=== PATIENT | female | born 1940 | race Caucasian/White ===

== ENCOUNTER 2017-08-26 15:50 | Emergency (ER) | payer MEDICARE, BC ==
--- NOTE | 2017-08-26 16:45 | CT ---
CT CERVICAL SPINE NONCONTRAST: Date: 08/26/17 HISTORY: Fall. Neck injury. FINDINGS: Vertebral body heights and alignment are maintained. There are prominent discogenic end plate changes throughout the end plates and disc space narrowing throughout the cervical spine. Osteophytosis invo lves the vertebral bodies and facets. No acute fracture or dislocation apparent. Cervicothoracic junc tion is intact. There is calcification in the arterial structures. IMPRESSION: 1. Cervical spondylosis. No acute osseous abnormalities are demonstrated. 2. Atherosclerosis. POS: [facility]
--- NOTE | 2017-08-26 16:57 | CT ---
CT HEAD NONCONTRAST 08/26/17 HISTORY: Fall. Head injury. COMPARISON: 02/07/12. FINDINGS: There is no evidence of acute intracranial hemorrhage or infarct. Diffuse cortical atrophy and chroni c ischemic small vessel disease are stable. There is no mass effect or shift of midline structures. T he tiny hyperdense focus at the mckinley-white junction of the medial aspect of the right frontal lobe is stable. Visualized paranasal sinuses remain well aerated. Scalp laceration over the right frontal ca lvarium is now apparent. IMPRESSION: 1. Right frontal scalp laceration. 2. Chronic type findings are stable. No acute intracranial abnormalities are demonstrated. POS: [facility]
[2017-08-26] MEDS ORDERED: Adacel (T-DAP) 0.5 ML VIAL ONE (16:58)
== END 2017-08-26 17:15 | disposition home or self-care (01) ==
LOC: SCSER 15:50
DX: S01.81XA Laceration without foreign body of other part of head, initial encounter (principal); S01.21XA Laceration without foreign body of nose, initial encounter; S16.1XXA Strain of muscle, fascia and tendon at neck level, initial encounter; M17.9 Osteoarthritis of knee, unspecified; E11.9 Type 2 diabetes mellitus without complications; E78.5 Hyperlipidemia, unspecified; Z79.82 Long term (current) use of aspirin; Z79.899 Other long term (current) drug therapy; W01.0XXA Fall on same level from slipping, tripping and stumbling without subsequent striking against object, initial encounter
CPT/HCPCS: 12011; 70450; 72125; 90715

== ENCOUNTER 2018-06-30 12:30 | Emergency (ER) | payer BC, MEDICARE ==
[2018-06-30] MEDS ORDERED: Bacitracin Zinc 1 Packet ONE (12:53)
[2018-06-30] MEDS ORDERED: traMADol HCl 50 MG TAB ONE (12:54)
--- NOTE | 2018-06-30 13:31 | CT ---
CERVICAL SPINE: Date: 06-29-18 Provided Clinical History: Injury, dizziness, pain. FINDINGS: Comparison is made with the study dated 08-26-17. There is no evidence for fracture or traumatic subluxation. Advanced multilevel cervical degenerative changes are again seen. No prevertebral soft tissue swelling is apparent. The visualized lung apices appear clear. Vascular calcifications are seen. IMPRESSION: No evidence for fracture or traumatic subluxation. POS: [facility]
--- NOTE | 2018-06-30 13:33 | CT ---
CT FACIAL BONES: Date: 06-29-18 Provided Clinical History: Facial pain status post injury. FINDINGS: There is no evidence for fracture. The globes and other orbital contents appear normal. The paranasal sinuses appear clear. IMPRESSION: No evidence for fracture. POS: [facility]
--- NOTE | 2018-06-30 13:52 | CT ---
CT BRAIN WITHOUT CONTRAST: HISTORY: Fall. Head injury. Headache. COMPARISON: 08/26/2017 FINDINGS: Changes of cortical atrophy and chronic small vessel ischemic disease are again seen. The small, hyp odense focus at the mckinley white matter junction at the medial aspect of the right frontal lobe is stab le. No evidence of acute infarct, hemorrhage, midline shift, or abnormal extraaxial fluid collection s is seen. The bony calvarium is intact. The visualized paranasal sinuses and mastoid air cells are well aerated. IMPRESSION: No CT evidence of acute intracranial process. POS: [facility]
--- NOTE | 2018-06-30 14:07 | RAD ---
LEFT KNEE FOUR VIEWS: History: 78-year-old female with history of injury status post fall. Comparison: 03-26-09 FINDINGS: Severe tricompartment arthrosis and joint space narrowing and hypertrophic osteophytosis. No acute fr acture or dislocation. IMPRESSION: Severe tricompartment arthrosis and degenerative changes. Bony demineralization. No acute fracture. POS: [facility]
--- NOTE | 2018-06-30 14:42 | RAD ---
RADIOGRAPH LEFT SHOULDER THERE VIEWS: Date: 06-30-18 Time: 1:51 p.m. History: 78-year-old female with acute traumatic left shoulder pain after fall. Comparison: 11-16-13 FINDINGS: Again noted is the metallic prosthesis replacing the humeral head with stem that reaches the proximal /mid humeral diaphysis. Short linear metallic markers at the glenoid. No acute fracture, loosening of hardware, or dislocation. IMPRESSION: 1. No acute fracture or dislocation. 2. Status post total left glenohumeral joint replacement arthroplasty. POS: [facility]
--- NOTE | 2018-06-30 14:44 | RAD ---
FOUR VIEWS RIGHT KNEE: COMPARISON: None. HISTORY: Right knee pain after injury. FINDINGS: Four views of the right knee show no evidence of acute fracture or dislocation. There is severe tric ompartmental joint space narrowing and osteophyte formation consistent with osteoarthritis. No knee effusion is seen. IMPRESSION: Severe right knee osteoarthritis. POS: [facility]
== END 2018-06-30 14:33 | disposition home or self-care (01) ==
LOC: ERS 12:30
DX: S01.81XA Laceration without foreign body of other part of head, initial encounter (principal); S40.012A Contusion of left shoulder, initial encounter; E11.9 Type 2 diabetes mellitus without complications; E78.5 Hyperlipidemia, unspecified; I10 Essential (primary) hypertension; F32.9 Major depressive disorder, single episode, unspecified; Z79.84 Long term (current) use of oral hypoglycemic drugs; Z79.899 Other long term (current) drug therapy; W01.0XXA Fall on same level from slipping, tripping and stumbling without subsequent striking against object, initial encounter
CPT/HCPCS: 70450; 70486; 72125

== ENCOUNTER 2018-07-02 12:05 | Emergency (ER) | payer MEDICARE, BC ==
[2018-07-02] MEDS ORDERED: Bacitracin Zinc 1 Packet ONE ×2 (13:27→13:31)
== END 2018-07-02 13:35 | disposition home or self-care (01) ==
LOC: ERS 12:05
DX: S51.811A Laceration without foreign body of right forearm, initial encounter (principal); M19.90 Unspecified osteoarthritis, unspecified site; E11.9 Type 2 diabetes mellitus without complications; E78.5 Hyperlipidemia, unspecified; I10 Essential (primary) hypertension; F32.9 Major depressive disorder, single episode, unspecified; W19.XXXA Unspecified fall, initial encounter
CPT/HCPCS: 99282

== ENCOUNTER 2019-03-01 15:40 | Inpatient (IN) | payer MEDICARE, BC ==
[2019-03-01] MEDS ORDERED: Acetaminophen 500 MG TAB PO SCH (16:45)
[2019-03-01] MEDS ORDERED: diphenhydrAMINE 25 MG CAP PO SCH (16:45)
[2019-03-01 17:18] VITALS: BMI 22.9
[2019-03-01] MEDS ORDERED: Dextrose 5% in Water 1,000 ML IV PRN (19:17)
[2019-03-01] MEDS ORDERED: Ondansetron ODT 4 MG TAB PO PRN (19:17)
[2019-03-01] MEDS ORDERED: Acetaminophen 325 MG TAB PO PRN (19:17)
[2019-03-01] MEDS ORDERED: Dextrose 50% Abboject 50 ML SYRINGE SLOW IVP PRN (19:17)
[2019-03-01] MEDS ORDERED: BECLOMETHASONE DIPROPIONATE NS PRN (19:20)
[2019-03-01] MEDS ORDERED: Temazepam 15 MG CAP PO PRN (19:22)
[2019-03-01] MEDS ORDERED: Fluticasone Propionate Nasal Spray 16 gm Bottle NASAL PRN (19:58)
--- NOTE | 2019-03-01 20:01 | HP ---
PRIMARY CARE PROVIDER: Dr. Blanco. CHIEF COMPLAINT: Weakness. HISTORY OF PRESENT ILLNESS: This is a 78-year-old female with history of diabetes, GERD, hypothyroidism, dyslipidemia, neuropathy, who presented to the [facility] today for IV iron infusion secondary to generalized weakness from anemia. The patient reports onset of feeling weak approximately one month ago. She states that at this point she can barely walk and has significant dyspnea with exertion with walking just across her home. She denies any prior history of transfusion or significant anemia. She reports her last colonoscopy was about two years ago and normal. She is on a daily low-dose aspirin as well as an NSAID for chronic arthritis pain. She denies any abdominal pain, nausea, or vomiting. She does report chronic constipation, for which she had very dark stools. The patient denies any sores, any bleeding with her gums, any blood in her urine , and also denies any blood with coughing. She presented to the Cancer Clinic today for IV iron infusion and found to have a hemoglobin of 5.1. She reports a week ago it was 7.0. There have been no precipitating factors or relieving factors. From the Cancer Clinic due to that significant severe anemia, she was directed to the hospital for direct admission. Treatments: IV iron x 1 dose today PAST MEDICAL HISTORY: 1. Diabetes mellitus. 2. Osteoarthritis. 3. Dyslipidemia. 4. History of ulcer approximately in 2004. 5. Hypothyroidism. 6. GERD. 7. Seasonal allergies. 8. Peripheral neuropathy. 9. Depression. PAST SURGICAL HISTORY: 1. Gastric bypass in 2004. 2. Left shoulder replacement. 3. Hysterectomy. 4. Cholecystectomy. FAMILY HISTORY: Significant for mom who had breast cancer. SOCIAL HISTORY: The patient denies any tobacco, reports one drink per month of alcohol. The patient is a full code. Her surrogate decision makers are her two sons, Morteza and Toño. MEDICATIONS: Reconciled with a list by the patient. 1. Aspirin 81 mg daily. 2. Januvia 100 mg daily. 3. Zyrtec 10 mg daily. 4. MegaRed supplement. 5. Wellbutrin 150 mg daily. 6. Nexium 40 mg daily. 7. Zetia 10 mg daily. 8. Zoloft 100 mg tablets 1-1/2 tablets daily. 9. Oxaprozin 600 mg daily. 10. Lyrica 75 mg b.i.d. 11. Unisom 50 mg at bedtime. 12. Osteo Bi-Flex two tablets daily. 13. Calcium with vitamin D one tablet daily. 14. Beclomethasone nose spray one spray each nostril daily. 15. Multivitamin daily. 16. Synthroid 25 mcg daily. 17. Lipitor 80 mg at bedtime. 18. Dulcolax two times per week. 19. Metamucil three tablets b.i.d. 20. Metformin 1000 mg 1-1/2 tablets in the morning and one tablet in the evening. REVIEW OF SYSTEMS: Notable for shortness of breath, constipation for which the patient relies on Dulcolax twice a week to have bowel movements that she reports are very dark, as well as urinary hesitation over the past few weeks. Denies nausea , vomiting, diarrhea, cold intolerance, chest pain, hematuria, fevers, or chills. All remaining review of systems are reviewed and negative. ALLERGIES: NONE. PHYSICAL EXAMINATION: VITAL SIGNS: Blood pressure 109/63, temperature 98.3, pulse 84, respirations 14 , sats 94% on room air. GENERAL: Awake, alert, responsive, in no apparent distress. Able to speak in full sentences, does appear out of breath after ambulating from the bathroom. HEENT: Her skin is pale. Pupils are equal and round. Oral mucosa is pink and moist. NECK: Supple and nontender. LYMPHATICS: No palpable cervical or supraclavicular lymphadenopathy. LUNGS: Clear to auscultation bilaterally. No audible wheezing, rhonchi, or rales. HEART: Normal S1 and S2 with a 2/6 systolic ejection murmur throughout. ABDOMEN: Soft. Present bowel sounds. Nontender. Nondistended. EXTREMITIES: A 1+ pitting edema bilateral at the ankles. No clubbing or cyanosis. VASCULAR: A 2+ dorsalis pedis pulses. NEUROLOGIC: No focal deficits. PSYCHIATRIC: Appears euthymic. SKIN: Pale with few areas of ecchymosis on arms and legs. LABORATORY DATA: By report, hemoglobin of 5.1 today and a week ago it was 7.0. IMPRESSION: 1. Severe symptomatic anemia consistent with iron deficiency and concern for acute blood loss given that dramatic acid changer a short period of time. 2. History of ulcer, in a patient who is on low-dose aspirin and nonsteroidal anti-inflammatory drug daily. 3. Diabetes mellitus, unknown control. 4. Osteoarthritis. 5. Dyslipidemia. 6. Hypothyroidism. 7. Peripheral neuropathy. 8. Seasonal allergies. 9. Gastroesophageal reflux disease. PLAN: 1. Admission to the hospital. 2. Transfuse 2 units packed red blood cells tonight. Recheck in the morning along with checking a CMP and TSH. 3. GI consultation to evaluate for acute blood loss anemia. 4. Continuing selective home medicines, holding the aspirin and the oxaprozin. We will continue bowel medications. 5. Bedside commode for patient comfort as well as sleep medicine per her request. 6. We will add p.r.n. pain medication for the chronic osteoarthritis. 7. We will continue Januvia, hold metformin for now and use insulin sliding scale as needed with a diabetic heart healthy diet. 8. Anticipated length of stay is three nights. 9. DVT prophylaxis with pneumatic compression devices. 10. GI prophylaxis - IV BID PPI for now 11. Code status is full. Surrogate decision makers are the patient's sons. 12. The patient is at high risk given age, comorbidities, and current presentation. 13. Reviewed the plan of care with the patient. No questions or further needs. Job ID: [id number] MTDD
[2019-03-01] MEDS: Pregabalin 75 MG CAP PO SCH (20:12)
[2019-03-01] MEDS: Atorvastatin Calcium 40 MG TAB PO SCH (20:12)
[2019-03-01] MEDS: Docusate 100 MG CAP PO SCH (20:12)
[2019-03-01] MEDS: Pantoprazole 40 MG VIAL IVP SCH (20:13)
[2019-03-01] MEDS: Polyethylene Glycol 3350 17 GM Packet PO SCH (20:13)
[2019-03-01] MEDS: HumaLOG 300 UNITS/3 ML VIAL SC PRN (20:16)
--- NOTE | 2019-03-02 03:05 | CON ---
DATE OF CONSULTATION: 03/01/2019 CHIEF COMPLAINT: Weakness and anemia. HISTORY OF PRESENT ILLNESS: Ms. Joseph is a 78-year-old woman who states that she has felt weak over the last month. She saw her primary care physician, Dr. Guevara and was noted to have a decrease in her hemoglobin this month compared to prior blood draws. She was sent to the [facility] for IV iron infusion due to history of iron deficiency anemia related to her prior gastric bypass surgery. However, she was found to have even further decline in her hemoglobin, reportedly with a hemoglobin around 5 today. She was then admitted from the Cancer Clinic for further evaluation of her anemia. She had an acute GI bleed back in 2015 when she presented with hematochezia. She underwent upper endoscopy in March 2016, which showed no bleeding source. She had a small gastric pouch and the jejunal loop was explored without signs of bleeding. She had had a colonoscopy, which was completely normal in January 2016 and also a normal colonoscopy in 2005. She has been followed by Dr. Kraft previously for her last colonoscopy and EGD. She has had no overt GI bleeding since then. She does have baseline constipation and takes Dulcolax a couple of times per week to achieve bowel movement. PAST MEDICAL HISTORY: 1. GI bleed back in 2005 without a bleeding source identified. 2. History of iron deficiency anemia related to gastric bypass surgery. 3. Hypothyroidism, depression, peripheral neuropathy, gastroesophageal reflux disease, hyperlipidemia, osteoarthritis, diabetes mellitus. PAST SURGICAL HISTORY: Gastric bypass surgery in 2004, hysterectomy, cholecystectomy, shoulder surgery. FAMILY HISTORY: Negative for GI malignancies. SOCIAL HISTORY: Rare alcohol. No tobacco or drugs. ALLERGIES: NO KNOWN DRUG ALLERGIES. MEDICATIONS: Prior to admission; 1. Aspirin is 81 mg daily. 2. Januvia. 3. Zyrtec. 4. Wellbutrin. 5. Nexium 40 mg daily. 6. MegaRed supplements. 7. Zetia. 8. Zoloft. 9. Oxaprozin. 10. Lyrica. 11. Unisom. 12. Osteo Bi-Flex. 13. Calcium with vitamin D. 14. Beclomethasone nasal spray. 15. Synthroid. 16. Multiple vitamin. 17. Lipitor. 18. Metamucil. 19. Metformin. REVIEW OF SYSTEMS: Negative x10 systems reviewed except as stated in the history of present illness. PHYSICAL EXAMINATION: VITAL SIGNS: Temperature 98.2, pulse 111, blood pressure 104/64. GENERAL: She is pale, in no acute distress. Alert and oriented x3. HEENT: Eyes have no scleral icterus. Oropharynx is clear without lesions. No cervical or supraclavicular lymphadenopathy. LUNGS: Clear to auscultation bilaterally. HEART: Tachycardic. S1, S2. ABDOMEN: Soft, nontender, and nondistended. Bowel sounds are present. EXTREMITIES: No lower extremity edema. LABORATORY DATA: Hemoglobin is 5.1, white blood cell count 7.7, platelets 413, MCV 93.3. IMPRESSION: Severe anemia, normocytic without signs of overt bleeding. She did have significant overt bleed back in 2016; however, upper and lower endoscopies were negative for bleeding source at that time. She has baseline anemia, however, an acute drop over the last month. She has gastric bypass anatomy and certainly could have malabsorption of iron. However, given the abrupt drop, then bleeding source needs to be considered as well. We will check iron studies and B12 and folate. RECOMMENDATIONS: 1. Plan for upper endoscopy tomorrow. 2. Check iron studies and B12 and folate and reticulocyte count. 3. Transfusion. 4. If the upper endoscopy is negative, then consider colonoscopy as a next step. 5. She will likely continue to require IV iron given the gastric bypass and it is unlikely that oral replacement will be adequate for her. 6. If upper and lower endoscopies are negative then outpatient capsule could be considered as a next step. 7. The patient did receive IV iron today and is already receiving blood transfusion. Iron studies are unlikely to be accurate at this point. We will request records from Dr. Guevara to see if she has already had recent blood work done regarding these labs. We will hold off ordering these for now. We will follow through with upper endoscopy for tomorrow. Job ID: [id number]
[2019-03-02] MEDS: Levothyroxine Sodium 25 MCG TAB PO SCH (05:25)
[2019-03-02 05:38] LABS: #Eosinphils 0.2 thou/uL (0.0-0.7); #Lymphocytes 1.5 thou/uL (1.20-3.40); #Monocytes 0.6 thou/uL (0.11-0.59); #Neutrophils 3.7 thou/uL (1.40-6.50); %Basophils 0.4 % (0.0-1.0); %Eosinophils 2.8 % (0.0-10.0); %Lymphocytes 24.5 % (21.0-51.0); %Monocytes 10.4 % (0.0-10.0); %Neutrophils 61.8 % (42.0-75.0); Hemoglobin 7.4 g/dL (12.0-16.0); Mean Corpuscular HGB CONC 30.7 g/dL (32.0-36.0); Mean Corpuscular Volume 94.4 fL (78.0-98.0); Mean Platelet Volume 6.9 fL (7.4-10.4); Platelet Count 350 thou/uL (130-400); Red Blood Cell (RBC) Count 2.54 mill/uL (4.20-5.40); White Blood Cell (WBC) Count 5.9 thou/uL (4.8-10.8)
[2019-03-02 06:03] LABS: ALT (SGPT) 12 U/L (8-55); AST (SGOT) 18 U/L (5-34); Albumin 3.4 g/dL (3.4-4.8); Alkaline Phosphatase 56 U/L (40-150); Anion Gap 8 mmol/L (10-20); BUN (Urea Nitrogen) 11 mg/dL (9.8-20.1); Bilirubin, Direct 0.2 mg/dL (0.1-0.3); Bilirubin, Total 0.3 mg/dL (0.2-1.2); Calc. Creatinine Clearance 82 mL/min (70-130); Calcium 8.6 mg/dL (7.8-10.44); Carbon Dioxide 32 mmol/L (23-31); Chloride 104 mmol/L (98-107); Estimated GFR-MDRD Greater than 90; Glucose 115 mg/dL (83-110); Protein, Total 5.2 g/dL (6.0-8.3); Sodium 140 mmol/L (136-145)
[2019-03-02] MEDS: Alogliptin 25 MG TAB PO SCH (08:50)
[2019-03-02] MEDS: Bupropion 150 MG SR TAB PO SCH (08:51)
[2019-03-02] MEDS: Multivit, Therapeutic 1 TAB PO SCH (08:51)
[2019-03-02] MEDS: Ezetimibe 10 MG TAB PO SCH (08:52)
[2019-03-02] MEDS: Loratadine 10 MG TAB PO SCH (08:53)
[2019-03-02] MEDS: Furosemide 20 MG TAB PO SCH (08:53)
[2019-03-02] MEDS: Calcium Carbonate + Vit D 1 TAB PO SCH (08:53)
[2019-03-02] MEDS: Pantoprazole 40 MG VIAL IVP SCH ×2 (08:54→20:38)
[2019-03-02] MEDS: Pregabalin 75 MG CAP PO SCH ×2 (08:55→20:41)
[2019-03-02] MEDS ORDERED: Prevnar 13-Val Conj/PF 0.5 ML SYRINGE IM ONE (09:00)
[2019-03-02] MEDS ORDERED: Cetirizine HCl 10 MG TAB PO SCH (09:00)
[2019-03-02] MEDS: Docusate 100 MG CAP PO SCH ×2 (09:03→20:39)
[2019-03-02] MEDS: Polyethylene Glycol 3350 17 GM Packet PO SCH ×2 (09:03→20:42)
[2019-03-02] MEDS ORDERED: PROPOFOL 200 MG/20 ML VIAL ONE (11:09)
--- NOTE | 2019-03-02 14:58 | PDOC.PN ---
- Subjective Encounter Start Date: 03/02/19 (f/u sx anemia) Encounter Start Time: 14:55 Subjective: Pt without complaints, asking when she can go home. Denies any pain -: n/v/sob - Objective Resuscitation Status - Order Detail: 03/01/19 19:17 Resuscitation Status Routine Resuscitation Status: FULL: Full Resuscitation Vital Signs & Weight: Vital Signs (12 hours) Temp Pulse Resp BP BP Pulse Ox 03/02/19 12:52 98.8 F 77 16 147/78 H 93 L 03/02/19 10:20 98.2 F 86 16 146/62 H 94 L 03/02/19 09:00 92 L 03/02/19 08:07 98.2 F 78 18 137/74 92 L 03/02/19 04:00 98.0 F 83 18 136/78 91 L Weight Weight 150 lb 14.4 oz I&O: 03/01/19 03/02/19 03/03/19 06:59 06:59 06:59 Intake Total 1180 Balance 1180 Result Diagrams: 03/02/19 05:22 03/02/19 05:22 Additional Labs: Accuchecks 03/02/19 03/02/19 03/01/19 13:12 05:02 19:44 POC Glucose 115 H 124 H 413 H Phys Exam - Physical Examination Constitutional: NAD Respiratory: no wheezing, no rhonchi bibasilar rales Cardiovascular: RRR 3/6 FRANK Gastrointestinal: soft, non-tender, no distention, positive bowel sounds 1+ edema bilateral Neurological: non-focal, moves all 4 limbs Psychiatric: normal affect Skin: no rash Dx/Plan (1) Anemia Code(s): D64.9 - ANEMIA, UNSPECIFIED Status: Acute Qualifiers: Anemia type: iron deficiency (2) Volume overload Code(s): E87.70 - FLUID OVERLOAD, UNSPECIFIED Status: Acute Qualifiers: Hypervolemia type: transfusion-associated Qualified Code(s): E87.71 - Transfusion associated circulatory overload (3) Diabetes mellitus Code(s): E11.9 - TYPE 2 DIABETES MELLITUS WITHOUT COMPLICATIONS Status: Acute Qualifiers: Diabetes mellitus type: type 2 (4) Peripheral neuropathy Code(s): G62.9 - POLYNEUROPATHY, UNSPECIFIED Status: Chronic Qualifiers: Peripheral neuropathy type: polyneuropathy, unspecified Qualified Code(s): G62.9 - Polyneuropathy, unspecified (5) Hypothyroid Code(s): E03.9 - HYPOTHYROIDISM, UNSPECIFIED Status: Chronic Qualifiers: Hypothyroidism type: unspecified Qualified Code(s): E03.9 - Hypothyroidism , unspecified (6) Osteoarthritis Code(s): M19.90 - UNSPECIFIED OSTEOARTHRITIS, UNSPECIFIED SITE Status: Chronic Qualifiers: Osteoarthritis location: unspecified site Osteoarthritis type: unspecified Qualified Code(s): M19.90 - Unspecified osteoarthritis, unspecified site (7) Dyslipidemia Code(s): E78.5 - HYPERLIPIDEMIA, UNSPECIFIED Status: Chronic (8) GERD (gastroesophageal reflux disease) Code(s): K21.9 - GASTRO-ESOPHAGEAL REFLUX DISEASE WITHOUT ESOPHAGITIS Status: Chronic Qualifiers: Esophagitis presence: without esophagitis Qualified Code(s): K21.9 - Gastro -esophageal reflux disease without esophagitis (9) Hypertension Code(s): I10 - ESSENTIAL (PRIMARY) HYPERTENSION Status: Chronic Qualifiers: Hypertension type: essential hypertension Qualified Code(s): I10 - Essential (primary) hypertension - Plan * sx anemia - responded to 2 units prbc * d/c aspirin and nsaid (oxaprozin) * d/w Dr. Barnes and PPI can be changed to BID * egd notable for non-bleeding ulcer * pt will need ongoing IV iron as her ability to absorb iron post-gastric bypass is low * volume overload secondary to transfusion - 1 dose of lasix and re-eval tomorrow * * continue other home meds as ordered, resume metformin * * dvt - scd's. * gi prophy - change to PO protonix starting tomorrow * * anticipate d/c to home if hemoglobin stable and above 7, no signs of volume overload. Will need follow up with Cancer center for IV iron infusions in the future. * * reviewed plan of care with patient, no questions or further needs at end of eval.
[2019-03-02] MEDS ORDERED: Furosemide 20 MG/2 ML VIAL SLOW IVP SCH (15:00)
--- NOTE | 2019-03-02 17:11 | OP ---
DATE OF PROCEDURE: 03/02/2019 PROCEDURE PERFORMED: Esophagogastroduodenoscopy with biopsy. PREOPERATIVE DIAGNOSES: Anemia of acute blood loss and anemia of chronic gastrointestinal blood loss and history of iron deficiency anemia from malabsorption due to prior gastric bypass surgery. OPERATIVE NOTE: Informed consent was obtained from the patient. She was sedated with total intravenous anesthesia. The bite block was placed and the endoscope was advanced well into the jejunum. The esophagus was normal. The GE junction was normal. There was a small gastric pouch. There was an 11-mm ulcer at the gastrojejunal anastomosis. This had a clear white base without stigmata of recent bleeding. The jejunal mucosa was normal throughout. The jejunojejunal distal anastomosis was not identified. Biopsies were taken from the proximal most jejunum to evaluate for celiac disease. This was done prior to the ulcer having been visualized as it was not seen until withdrawal. IMPRESSION: 1. 11-mm ulcer with a white base and without stigmata of recent bleeding at the gastrojejunal anastomosis. This is present despite daily proton pump inhibitor use. She takes aspirin and nasal steroids, but no other obvious NSAIDs. 2. Otherwise normal upper endoscopy status post Nigel-en-Y gastric bypass anatomy. RECOMMENDATIONS: 1. Await histopathology. 2. Increase the proton pump inhibitor to twice daily. 3. Advance her diet. 4. She can receive IV iron infusions as needed. 5. Avoid aspirin for the next month. Also verify there is no other NSAID use. 6. Follow up in GI clinic in a month with Dr. Kraft. Job ID: [id number]
[2019-03-02] MEDS: HumaLOG 300 UNITS/3 ML VIAL SC PRN ×2 (17:49→20:56)
[2019-03-02] MEDS: Atorvastatin Calcium 40 MG TAB PO SCH (20:39)
[2019-03-02] MEDS ORDERED: Chloraseptic Spray 180 ml Bottle PO PRN (21:03)
[2019-03-03] MEDS: Levothyroxine Sodium 25 MCG TAB PO SCH (05:06)
[2019-03-03 06:01] LABS: #Eosinphils 0.2 thou/uL (0.0-0.7); #Lymphocytes 1.5 thou/uL (1.20-3.40); #Monocytes 0.5 thou/uL (0.11-0.59); #Neutrophils 5.1 thou/uL (1.40-6.50); %Basophils 0.1 % (0.0-1.0); %Eosinophils 2.7 % (0.0-10.0); %Lymphocytes 20.7 % (21.0-51.0); %Monocytes 7.3 % (0.0-10.0); %Neutrophils 69.2 % (42.0-75.0); Hemoglobin 7.8 g/dL (12.0-16.0); Mean Corpuscular HGB CONC 30.5 g/dL (32.0-36.0); Mean Corpuscular Volume 95.1 fL (78.0-98.0); Mean Platelet Volume 7.1 fL (7.4-10.4); Platelet Count 357 thou/uL (130-400); RBC Distribution Width 14.2 % (11.5-14.5); White Blood Cell (WBC) Count 7.4 thou/uL (4.8-10.8)
[2019-03-03 06:19] LABS: Anion Gap 9 mmol/L (10-20); BUN (Urea Nitrogen) 7 mg/dL (9.8-20.1); Calc. Creatinine Clearance 80 mL/min (70-130); Calcium 8.7 mg/dL (7.8-10.44); Carbon Dioxide 31 mmol/L (23-31); Chloride 102 mmol/L (98-107); Estimated GFR-MDRD Greater than 90; Glucose 130 mg/dL (83-110); Potassium 3.4 mmol/L (3.5-5.1); Sodium 139 mmol/L (136-145)
[2019-03-03] MEDS: Alogliptin 25 MG TAB PO SCH (09:20)
[2019-03-03] MEDS: Polyethylene Glycol 3350 17 GM Packet PO SCH (09:20)
[2019-03-03] MEDS: Furosemide 20 MG TAB PO SCH (09:21)
[2019-03-03] MEDS: Docusate 100 MG CAP PO SCH (09:21)
[2019-03-03] MEDS: Ezetimibe 10 MG TAB PO SCH (09:21)
[2019-03-03] MEDS: Multivit, Therapeutic 1 TAB PO SCH (09:21)
[2019-03-03] MEDS: Calcium Carbonate + Vit D 1 TAB PO SCH (09:21)
[2019-03-03] MEDS: Loratadine 10 MG TAB PO SCH (09:21)
[2019-03-03] MEDS: Pregabalin 75 MG CAP PO SCH (09:22)
[2019-03-03] MEDS: Bupropion 150 MG SR TAB PO SCH (09:29)
[2019-03-03] MEDS ORDERED: Potassium Chloride 20 MEQ TAB PO SCH (12:00)
[2019-03-03] MEDS: HumaLOG 300 UNITS/3 ML VIAL SC PRN (12:01)
[2019-03-03 14:04] VITALS: BP 132/78; TEMP 97.8
--- NOTE | 2019-03-03 20:56 | DIS ---
DATE OF ADMISSION: 03/01/2019 DATE OF DISCHARGE: 03/03/2019 MEDICATIONS: Reconciled at discharge. Discontinued medications are: 1. Aspirin due to ulcer. 2. Oxaprozin due to ulcer. Medications changed: 1. Esomeprazole daily has been changed to pantoprazole 40 mg one tablet p.o. b.i.d. Medications to resume: 1. Atorvastatin 80 mg daily. 2. Beclomethasone spray 2 puffs each nostril daily as needed. 3. Wellbutrin 150 mg daily. 4. Calcium carbonate with vitamin D one tablet daily. 5. Zyrtec 10 mg daily. 6. Zetia 10 mg daily. 7. Furosemide 20 mg daily as needed for swelling. Prescription provided for 10 tablets. 8. Glucosamine chondroitin 2 tablets daily. 9. Krill fish oil one tablet daily. 10. Levothyroxine 25 mcg daily. 11. Multivitamin daily. 12. Lyrica 75 mg b.i.d. 13. Zoloft 150 mg daily. 14. Benadryl 50 mg at bedtime. 15. Januvia 100 mg daily. New medications: 1. Potassium chloride 10 mEq one dose on the days that she takes Lasix, prescription provided for 10 tablets, no refills. FINAL DIAGNOSES: 1. Symptomatic acute blood loss anemia, now status post 2 units of packed red blood cells. 2. 11 mm ulcer at the gastrojejunal anastomosis on EGD. SECONDARY DIAGNOSES: 1. Diabetes mellitus type 2. 2. Osteoarthritis. 3. Dyslipidemia. 4. Hypothyroidism. 5. Gastroesophageal reflux disease. 6. Seasonal allergies. 7. Peripheral neuropathy. 8. Depression. HISTORY OF PRESENT ILLNESS: Ms. Joseph is a 78-year-old female who presented to the [facility] Clinic for IV iron infusion and found to have a hemoglobin of 5.1. A week prior, it was 7. The patient was referred to the Cancer Clinic for evaluation due to ongoing anemia. She did receive IV iron and was directed to the hospital for transfusion. HOSPITAL COURSE: The patient received 2 units of packed red blood cells and tolerated this well. She did require one dose of IV Lasix the following day for some volume overload and has responded well. She underwent EGD with Dr. Barnes, who found to have an 11 mm ulcer with a white base at the gastrojejunal anastomosis. He recommends increasing the proton pump inhibitor to twice daily and to avoid aspirin and to stop any NSAIDs. Also recommended to follow up within a month. The patient was continued on her usual home medications with the exception of aspirin and oxaprozin. These have been discontinued and will be discontinued in the outpatient setting. She is overall feeling well, energy is improved, and she does meet criteria for discharge to home. She will need to follow up in the Cancer clinic regularly for IV iron, as with the gastric bypass it is not anticipated that she can absorb iron well. PHYSICAL EXAMINATION: VITAL SIGNS: On day of discharge, blood pressure 150/78, temp 98.5, pulse 73, respirations 18, sats 92% on room air. GENERAL: Awake, alert, responsive, in no apparent distress. Able to speak in full sentences. LUNGS: Clear to auscultation bilateral with good air movement. HEART: Normal S1 and S2. Regular rate and rhythm. No significant murmur. ABDOMEN: Soft. Present bowel sounds. EXTREMITIES: No pitting edema. BEACH FINDINGS AND TEST RESULTS: CBC today; 7.4, 7.8, 25.7, 357. Chemistry; 139, 3.4, 102, 31, 7, 0.63, 130, with a calcium of 8.7. Surgical specimen obtained on EGD is unremarkable. No evidence of celiac sprue. FOLLOWUP: 1. Dr. Blackman in the Cancer Center as previously directed as the patient is going to need ongoing IV iron due to a history of gastric bypass and challenges associated with absorbing iron. 2. Dr. Blanco for monitoring of hemoglobin, discuss chronic pain and alternate ways of treating, and to address any other health needs. ACTIVITY: As tolerated. The patient is encouraged to go slow when changing positions to avoid orthostatic symptoms. DIET: Heart healthy, carbohydrate consistent. CODE STATUS: Full. DISCHARGE DISPOSITION: Home. Reviewed with the patient this hospitalization, the importance of followup, discontinuing NSAIDs and the aspirin, as well as the seek care precautions. No questions or further needs at end of evaluation. TIME SPENT: Total time coordinating discharge is less than 30 minutes. Job ID: [id number] MTDD
== END 2019-03-03 15:31 | disposition home or self-care (01) | DRG 812 ==
LOC: T4-A 16:09
PROVIDERS: ADMIT Family Medicine; ATTEND Family Medicine
PROC: 30233N1 Transfusion of Nonautologous Red Blood Cells into Peripheral Vein, Percutaneous Approach (ICD-10-PCS; 2019-03-01)
PROC: 0DBA8ZX Excision of Jejunum, Via Natural or Artificial Opening Endoscopic, Diagnostic (ICD-10-PCS; principal; 2019-03-02)
DX: D62 Acute posthemorrhagic anemia (principal); D50.9 Iron deficiency anemia, unspecified; K21.9 Gastro-esophageal reflux disease without esophagitis; E03.9 Hypothyroidism, unspecified; E78.5 Hyperlipidemia, unspecified; M19.90 Unspecified osteoarthritis, unspecified site; E11.42 Type 2 diabetes mellitus with diabetic polyneuropathy; F32.9 Major depressive disorder, single episode, unspecified; K59.09 Other constipation; K28.9 Gastrojejunal ulcer, unspecified as acute or chronic, without hemorrhage or perforation; E87.70 Fluid overload, unspecified; J30.2 Other seasonal allergic rhinitis; Z90.710 Acquired absence of both cervix and uterus; Z90.49 Acquired absence of other specified parts of digestive tract; Z79.82 Long term (current) use of aspirin; Z79.84 Long term (current) use of oral hypoglycemic drugs; Z79.899 Other long term (current) drug therapy; Z88.5 Allergy status to narcotic agent
CPT/HCPCS: 36415; 36416; 36430; 80048; 80076; 84443; 85025; 86850; 86900; 86901; 88305; C9113; J1940; J2704; P9016; Q0163

== ENCOUNTER 2019-10-06 12:26 | Outpatient (CLI) | payer MEDICARE, BC ==
--- NOTE | 2019-10-06 15:18 | MRI ---
MRI of thebrain: 10/06/2019 COMPARISON:04/27/2015 HISTORY:Reevaluate intracranial lesion TECHNIQUE: Multiplanar multisequence MR imaging of thebrain with and without contrast Findings:The diffusion weighted imaging demonstrates no evidence for acute infarction. There is a foc us of blooming artifact on the gradient echo sequence within the posterior medial aspect of the right frontal lobe near the vertex, unchanged when compared to the 2014 exam, measuring in the 9-10 m m range. No associated edema is seen in this region. Multiple scattered foci of increased T2 and FLAIR signal within the periventricular, deep, and subcor tical white matter, evidence of small vessel disease. Similar patchy areas of increased signal noted within the jordi as before. Arterial flow voids at the axial level of the skull base appear unremarkable on the T2-weighted imagi ng. Imaged paranasal sinuses/mastoid air cells appear grossly unremarkable. Postcontrast imaging demonstrates mild central enhancement of the intra-axial lesion near the vertex on the right as before. Postcontrast imaging appears grossly unremarkable otherwise. IMPRESSION:Stable brain MRI demonstrating an intra-axial lesion in the right frontal lobe consistent with stable cavernous malformation. Small vessel disease with no evidence for acute infarction.
--- NOTE | 2019-10-06 15:29 | MRI ---
MRI Cervical spine with and without IV contrast: HISTORY: Disease of spinal cord. History of cavernous hemangioma. COMPARISON: 04/27/2015 FINDINGS: Again noted is linear intramedullary hemosiderin staining in the spinal cord extending from the mid a spect of the C5 vertebral body to the C7-T1 level unchanged from prior exam suggesting prior hemorrhage within the spinal cord. Multilevel degenerative changes are again seen throughout the cervical spine. Paravertebral soft tissues have a normal appearance and normal signal intensity. C1-2:No significant stenosis. C2-3: Trace anterolisthesis of C2 on C3 is again seen. Central spinal canal and neural foramina are p atent. Mild left-sided facet hypertrophy is present. C3-4: Mild loss of intervertebral disc height. Facet degenerative changes are seen. A mild disc osteo phyte complex with left paracentral disc protrusion is again noted. The right neural foramen remains patent, but stable severe left-sided neural foraminal narrowing is again seen. C4-5: Again, loss of intervertebral disc height and endplate degenerative changes are present at this level. Prominent disc osteophyte complex is present with prominent right-sided uncinate process hypertrophy. Mild effacement of the ventral subarachnoid space with encroachment on the spinal cord i s present. Moderate to severe right-sided neural foraminal narrowing with mild left-sided neural foraminal narrowing is again seen. C5-6: Loss of intervertebral disc height with disc osteophyte complex is again seen. Endplate degener ative changes are noted at this level. Narrowing of the ventral subarachnoid space with mild generalized narrowing central spinal canal is present. Uncinate processes hypertrophy is present at t his level. Severe bilateral neural foraminal narrowing is again noted. C6-7: Mild loss of vertebral disc height is present with endplate degenerative changes. Disc osteophy te complex is present which effaces the ventral subarachnoid space. Moderate to severe bilateral neural foraminal narrowing is present. C7-T1: No disc bulge or disc herniation. Central spinal canal and neural foramina are patent. No abnormal areas of enhancement are seen after the administration of intravenous contrast. IMPRESSION: 1. Stable area of intramedullary hemosiderin centrally within the spinal cord in a linear fashion ind icative of prior spinal cord hemorrhage. No abnormal enhancement or mass is visualized in the spinal cord. 2. Stable severe multilevel spondylosis of the cervical spine with multilevel neural foraminal narrow ing as described above not significantly progressed from prior exam.
== END 2019-10-06 12:27 | disposition home or self-care (01) ==
LOC: SCSMRI 12:26
PROVIDERS: ATTEND Neurological Surgery
DX: D18.02 Hemangioma of intracranial structures (principal); G95.9 Disease of spinal cord, unspecified; M47.812 Spondylosis without myelopathy or radiculopathy, cervical region; M48.02 Spinal stenosis, cervical region; G93.89 Other specified disorders of brain
CPT/HCPCS: 70553; 72156; 82565

== ENCOUNTER 2022-02-22 10:06 | Observation (INO) | payer MEDICARE, BC ==
[2022-02-22 12:01] LABS: Hemoglobin 12.9 g/dL (12.0-16.0); Mean Corpuscular HGB CONC 32.7 g/dL (32.0-36.0); Mean Corpuscular Hemoglobin 31.7 pg (27.0-31.0); Mean Corpuscular Volume 96.9 fL (78.0-98.0); Mean Platelet Volume 7.1 fL (7.4-10.4); Platelet Count 324 thou/uL (130-400); RBC Distribution Width 12.6 % (11.5-14.5); Red Blood Cell (RBC) Count 4.08 mill/uL (4.20-5.40); White Blood Cell (WBC) Count 8.8 thou/uL (4.8-10.8)
[2022-02-22 12:08] LABS: INR-International Normal Ratio 1.2; PTT 33.4 sec (22.9-36.1); Prothrombin Time 15.6 sec (12.0-14.7)
[2022-02-22 12:23] LABS: ALT (SGPT) 16 U/L (8-55); AST (SGOT) 27 U/L (5-34); Albumin 3.5 g/dL (3.4-4.8); Alkaline Phosphatase 103 U/L (40-110); Anion Gap 15 mmol/L (10-20); BUN (Urea Nitrogen) 9 mg/dL (9.8-20.1); Bilirubin, Total 0.6 mg/dL (0.2-1.2); Calc. Creatinine Clearance 0 mL/min (70-130); Calcium 8.7 mg/dL (7.8-10.44); Carbon Dioxide 25 mmol/L (23-31); Chloride 103 mmol/L (98-107); Estimated GFR 89; Globulin 2.6 g/dL (2.4-3.5); Glucose 146 mg/dL (83-110); Potassium 4.2 mmol/L (3.5-5.1); Protein, Total 6.1 g/dL (5.8-8.1); Sodium 139 mmol/L (136-145)
[2022-02-22 12:26] LABS: #Eosinphils 0.1 thou/uL (0.0-0.7); #Lymphocytes 1.4 thou/uL (1.20-3.40); #Monocytes 0.7 thou/uL (0.11-0.59); #Neutrophils 6.6 thou/uL (1.40-6.50); %Basophils 0.2 % (0.0-1.0); %Eosinophils 1.4 % (0.0-10.0); %Lymphocytes 15.8 % (21.0-51.0); %Monocytes 7.9 % (0.0-10.0); %Neutrophils 74.7 % (42.0-75.0); Platelet Morphology Comment Appears Adequate; RBC Morphology Normal
[2022-02-22] MEDS ORDERED: Dextrose 50% Abboject 50 ML SYRINGE SLOW IVP PRN (13:41)
[2022-02-22] MEDS ORDERED: Dextrose 5% in Water 1,000 ML IV PRN (13:41)
[2022-02-22] MEDS ORDERED: Ondansetron PF 4 MG/2 ML Vial IVP PRN (13:41)
[2022-02-22] MEDS ORDERED: Promethazine HCl 25 MG/ML VIAL IM PRN (13:41)
[2022-02-22] MEDS ORDERED: hydrALAZINE 20 MG/ML VIAL SLOW IVP PRN (13:41)
[2022-02-22 14:53] LABS: SARS-CoV-2 NAA Rapid Test Not Detected (NotDetected)
[2022-02-22 17:29] VITALS: BMI 22.0
[2022-02-22] MEDS: HumaLOG 300 UNITS/3 ML VIAL SC PRN (18:05)
[2022-02-22] MEDS: Acetaminophen 500 MG TAB PO SCH ×2 (18:06→23:58)
[2022-02-22] MEDS ORDERED: Amlodipine 5 MG TAB PO SCH (20:00)
[2022-02-22] MEDS: Pregabalin 75 MG CAP PO SCH (20:27)
[2022-02-22] MEDS ORDERED: diphenhydrAMINE 50 MG CAP PO PRN (21:00)
[2022-02-22] MEDS ORDERED: Famotidine 20 MG TAB PO SCH (21:00)
[2022-02-22] MEDS: Cyclobenzaprine 10 MG TAB PO PRN (21:13)
[2022-02-23] MEDS: Acetaminophen 500 MG TAB PO SCH (05:46)
[2022-02-23] MEDS: Cyclobenzaprine 10 MG TAB PO PRN (05:47)
[2022-02-23] MEDS: HumaLOG 300 UNITS/3 ML VIAL SC PRN (05:49)
[2022-02-23] MEDS ORDERED: Levothyroxine Sodium 25 MCG TAB PO SCH (06:00)
[2022-02-23] MEDS ORDERED: Bupropion 150 MG SR TAB PO SCH (09:00)
[2022-02-23] MEDS ORDERED: Atorvastatin Calcium 40 MG TAB PO SCH (09:00)
[2022-02-23] MEDS ORDERED: Ezetimibe 10 MG TAB PO SCH (09:00)
[2022-02-23] MEDS ORDERED: Furosemide 20 MG TAB PO PRN (09:00)
[2022-02-23] MEDS ORDERED: Potassium Chloride 10 MEQ TAB PO PRN (09:00)
[2022-02-23] MEDS: Pregabalin 75 MG CAP PO SCH (09:57)
[2022-02-23 11:06] VITALS: BP 136/75; TEMP 98.1
== END 2022-02-23 15:39 | disposition home or self-care (01) ==
LOC: ERS 10:06 → SURG B 13:44
PROVIDERS: ADMIT Surgery; ATTEND Surgery
DX: S06.300A Unspecified focal traumatic brain injury without loss of consciousness, initial encounter (principal); G89.11 Acute pain due to trauma; E11.40 Type 2 diabetes mellitus with diabetic neuropathy, unspecified; E78.5 Hyperlipidemia, unspecified; E03.9 Hypothyroidism, unspecified; I10 Essential (primary) hypertension; K21.9 Gastro-esophageal reflux disease without esophagitis; M43.12 Spondylolisthesis, cervical region; M48.02 Spinal stenosis, cervical region; M17.9 Osteoarthritis of knee, unspecified; M47.816 Spondylosis without myelopathy or radiculopathy, lumbar region; Z79.84 Long term (current) use of oral hypoglycemic drugs; Z79.890 Hormone replacement therapy; Z79.899 Other long term (current) drug therapy; Z88.5 Allergy status to narcotic agent; Z98.84 Bariatric surgery status; Z20.822 Contact with and (suspected) exposure to COVID-19; W18.09XA Striking against other object with subsequent fall, initial encounter
CPT/HCPCS: 70450 ×2; 72125; 72128; 72131; 73610; 80053; 82962 ×2; 85025; 85610; 85730; 93005; 97530; 99285; U0002; 36415; 36416; G0378; G0390; J1815

== ENCOUNTER 2022-08-28 16:17 | Emergency (ER) | payer OTHER, MEDICARE ==
[2022-08-28] MEDS ORDERED: Ketorolac Tromethamine 30 MG/ML VIAL ONE (18:01)
[2022-08-28] MEDS ORDERED: Fentanyl 100 MCG/2 ML VIAL ONE (18:01)
[2022-08-28] MEDS ORDERED: Lidocaine 1% w/Epinephrine 1:100K 20 ML VIAL ONE (18:11)
[2022-08-28] MEDS ORDERED: Boostrix 0.5 ML (Tdap) VIAL (>/=7 yrs of age) ONE (20:08)
== END 2022-08-28 20:29 | disposition home or self-care (01) ==
LOC: ERS 16:17
DX: S01.81XA Laceration without foreign body of other part of head, initial encounter (principal); E11.9 Type 2 diabetes mellitus without complications; E78.00 Pure hypercholesterolemia, unspecified; W01.0XXA Fall on same level from slipping, tripping and stumbling without subsequent striking against object, initial encounter; W22.09XA Striking against other stationary object, initial encounter; Z79.82 Long term (current) use of aspirin; Z23 Encounter for immunization
CPT/HCPCS: 12001; 70450; 72125; 72170; 90471; 90715; 93005; 96374; 96375; J1885; J3010

== ENCOUNTER 2023-03-30 20:17 | Inpatient (IN) | payer MEDICARE, BC ==
[2023-03-30 23:32] VITALS: BMI 17.8
[2023-03-31] MEDS ORDERED: Dextrose 5% in Water 1,000 ML IV PRN (00:32)
[2023-03-31] MEDS ORDERED: Insulin Regular 300 UNITS/3 ML VIAL SC PRN ×2 (00:32)
[2023-03-31] MEDS ORDERED: Ondansetron ODT 4 MG TAB PO PRN (00:32)
[2023-03-31] MEDS ORDERED: hydrALAZINE 20 MG/ML VIAL SLOW IVP PRN (00:32)
[2023-03-31] MEDS ORDERED: Glucagon 1 MG/ML KIT IM PRN (00:32)
[2023-03-31] MEDS ORDERED: Ipratropium/Albuterol 3 ML NEB NEB PRN (00:32)
[2023-03-31] MEDS ORDERED: Dextrose 50% Abboject 50 ML SYRINGE SLOW IVP PRN (00:32)
[2023-03-31] MEDS ORDERED: Ondansetron PF 4 MG/2 ML Vial IVP PRN (00:32)
[2023-03-31] MEDS ORDERED: Potassium Chloride 10 MEQ TAB PO PRN (00:36)
[2023-03-31] MEDS ORDERED: Cyclobenzaprine 10 MG TAB PO PRN (00:36)
[2023-03-31 04:09] LABS: Bilirubin Negative (Negative); Blood, Urine Negative (Negative); Clarity Clear (Clear); Glucose, Urine (Dipstick) Normal (Negative); Ketone, Urine Negative (Negative); Leukocyte Negative Leu/uL (Negative); Nitrite Negative (Negative); Protein, Urine (Dipstick) Negative (Neg-Trace); Specific Gravity, Urine 1.014 (1.002-1.036); Urobilinogen Normal mg/dL (Less than 2)
[2023-03-31 04:34] LABS: #Eosinphils 0.1 thou/uL (0.0-0.7); #Monocytes 0.8 thou/uL (0.11-0.59); #Neutrophils 5.2 thou/uL (1.40-6.50); %Basophils 0.5 % (0.0-1.0); %Eosinophils 1.7 % (0.0-10.0); %Lymphocytes 24.6 % (21.0-51.0); %Monocytes 9.3 % (0.0-10.0); %Neutrophils 63.5 % (42.0-75.0); Hematocrit 27.5 % (36.0-47.0); Hemoglobin 8.9 g/dL (12.0-16.0); Mean Corpuscular HGB CONC 32.4 g/dL (32.0-36.0); Mean Corpuscular Hemoglobin 27.1 pg (27.0-31.0); Mean Corpuscular Volume 83.8 fl (78.0-98.0); Platelet Count 300 10x3/uL (130-400); RBC Distribution Width 16.2 % (11.5-14.5); Red Blood Cell (RBC) Count 3.28 mill/uL (4.20-5.40); White Blood Cell (WBC) Count 8.2 10x3/uL (4.8-10.8)
[2023-03-31 04:57] LABS: Anion Gap 8 mmol/L (10-20); BUN (Urea Nitrogen) 12 mg/dL (9.8-20.1); Calc. Creatinine Clearance 52 mL/min (70-130); Calcium 8.1 mg/dL (7.8-10.44); Carbon Dioxide 32 mmol/L (23-31); Chloride 98 mmol/L (98-107); Estimated GFR 87; Glucose 149 mg/dL (83-110); Magnesium 1.7 mg/dL (1.6-2.6); Potassium 3.4 mmol/L (3.5-5.1); Sodium 135 mmol/L (136-145)
[2023-03-31] MEDS: Levothyroxine Sodium 25 MCG TAB PO SCH (05:25)
[2023-03-31] MEDS ORDERED: Acetaminophen 500 MG TAB PO SCH (06:00)
[2023-03-31] MEDS: Sertraline 100 MG TAB PO SCH (08:08)
[2023-03-31] MEDS: Atorvastatin Calcium 40 MG TAB PO SCH (08:09)
[2023-03-31] MEDS: Loratadine 10 MG TAB PO SCH (08:09)
[2023-03-31] MEDS: Multivit, Therapeutic 1 TAB PO SCH (08:09)
[2023-03-31] MEDS: Pregabalin 75 MG CAP PO SCH ×2 (08:09→20:54)
[2023-03-31] MEDS ORDERED: Famotidine 20 MG TAB PO SCH (09:00)
[2023-03-31] MEDS ORDERED: Bupropion 150 MG SR TAB PO SCH (09:00)
[2023-03-31] MEDS: Acetaminophen/Codeine 30-300mg Tablet PO SCH ×3 (11:25→23:05)
[2023-03-31] MEDS: Acetaminophen 325 MG TAB PO SCH ×2 (14:01→20:55)
[2023-03-31] MEDS: Potassium Chloride 20 MEQ in Premix Bag 1 BAG IVPB SCH ×2 (16:57→16:58)
[2023-04-01] MEDS: Acetaminophen 325 MG TAB PO SCH ×4 (04:26→21:05)
[2023-04-01 04:57] LABS: Phosphorus 3.3 mg/dL (2.3-4.7)
[2023-04-01] MEDS: Levothyroxine Sodium 25 MCG TAB PO SCH (05:26)
[2023-04-01] MEDS: Acetaminophen/Codeine 30-300mg Tablet PO SCH ×3 (05:26→18:45)
[2023-04-01] MEDS ORDERED: Magnevist 469MG/ML 20 ML VIAL ONE (09:57)
[2023-04-01] MEDS: Sertraline 100 MG TAB PO SCH (09:58)
[2023-04-01] MEDS: Multivit, Therapeutic 1 TAB PO SCH (09:58)
[2023-04-01] MEDS: Atorvastatin Calcium 40 MG TAB PO SCH (10:00)
[2023-04-01] MEDS: Bupropion 150 MG XL TAB PO SCH (10:00)
[2023-04-01] MEDS: Loratadine 10 MG TAB PO SCH (10:00)
[2023-04-01] MEDS: Pregabalin 75 MG CAP PO SCH ×2 (10:01→21:05)
[2023-04-01 10:29] LABS: #Eosinphils 0.3 thou/uL (0.0-0.7); #Neutrophils 6.1 thou/uL (1.40-6.50); %Basophils 0.4 % (0.0-1.0); %Eosinophils 2.6 % (0.0-10.0); %Lymphocytes 22.1 % (21.0-51.0); %Monocytes 10.4 % (0.0-10.0); %Neutrophils 64.3 % (42.0-75.0); Hematocrit 28.7 % (36.0-47.0); Hemoglobin 8.9 g/dL (12.0-16.0); Mean Corpuscular Hemoglobin 27.3 pg (27.0-31.0); Mean Platelet Volume 10.5 fL (7.4-10.4); Platelet Count 314 10x3/uL (130-400); RBC Distribution Width 16.9 % (11.5-14.5); Red Blood Cell (RBC) Count 3.26 mill/uL (4.20-5.40); White Blood Cell (WBC) Count 9.5 10x3/uL (4.8-10.8)
[2023-04-01 12:04] LABS: ALT (SGPT) 14 U/L (8-55); AST (SGOT) 25 U/L (5-34); Albumin 3.3 g/dL (3.4-4.8); Alkaline Phosphatase 84 U/L (40-110); Anion Gap 12 mmol/L (10-20); BUN (Urea Nitrogen) 9 mg/dL (9.8-20.1); Bilirubin, Total 0.4 mg/dL (0.2-1.2); Calc. Creatinine Clearance 56 mL/min (70-130); Calcium 8.4 mg/dL (7.8-10.44); Carbon Dioxide 27 mmol/L (23-31); Chloride 103 mmol/L (98-107); Estimated GFR 89; Globulin 2.2 g/dL (2.4-3.5); Glucose 142 mg/dL (83-110); Protein, Total 5.5 g/dL (5.8-8.1); Sodium 138 mmol/L (136-145)
[2023-04-01] MEDS: Senokot 8.6 MG TAB PO SCH (21:06)
[2023-04-02] MEDS: Acetaminophen/Codeine 30-300mg Tablet PO SCH ×4 (00:07→19:15)
[2023-04-02] MEDS: Acetaminophen 325 MG TAB PO SCH ×4 (03:30→20:35)
[2023-04-02] MEDS: Levothyroxine Sodium 25 MCG TAB PO SCH (06:02)
[2023-04-02] MEDS: Atorvastatin Calcium 40 MG TAB PO SCH (08:06)
[2023-04-02] MEDS: Bupropion 150 MG XL TAB PO SCH (08:06)
[2023-04-02] MEDS: Sertraline 100 MG TAB PO SCH (08:06)
[2023-04-02] MEDS: Senokot 8.6 MG TAB PO SCH ×2 (08:07→20:35)
[2023-04-02] MEDS: Pregabalin 75 MG CAP PO SCH ×2 (08:07→20:35)
[2023-04-02] MEDS: Multivit, Therapeutic 1 TAB PO SCH (08:07)
[2023-04-02] MEDS: Loratadine 10 MG TAB PO SCH (08:07)
[2023-04-02] MEDS: Polyethylene Glycol 3350 17 GM Packet PO SCH (08:09)
[2023-04-02] MEDS ORDERED: Polyethylene Glycol 3350 17 GM Packet PO SCH (09:00)
[2023-04-03] MEDS: Acetaminophen/Codeine 30-300mg Tablet PO SCH ×4 (01:21→18:02)
[2023-04-03] MEDS: Acetaminophen 325 MG TAB PO SCH ×4 (03:07→21:51)
[2023-04-03] MEDS: Levothyroxine Sodium 25 MCG TAB PO SCH (06:04)
[2023-04-03] MEDS: Atorvastatin Calcium 40 MG TAB PO SCH (09:03)
[2023-04-03] MEDS: Pregabalin 75 MG CAP PO SCH ×2 (09:04→21:51)
[2023-04-03] MEDS: Sertraline 100 MG TAB PO SCH (09:06)
[2023-04-03] MEDS: Loratadine 10 MG TAB PO SCH (09:08)
[2023-04-03] MEDS: Senokot 8.6 MG TAB PO SCH ×2 (09:09→21:52)
[2023-04-03] MEDS: Bupropion 150 MG XL TAB PO SCH (09:09)
[2023-04-03] MEDS: Multivit, Therapeutic 1 TAB PO SCH (09:10)
[2023-04-03] MEDS: Polyethylene Glycol 3350 17 GM Packet PO SCH (09:15)
[2023-04-04] MEDS: Acetaminophen/Codeine 30-300mg Tablet PO SCH ×3 (00:19→11:22)
[2023-04-04] MEDS: Acetaminophen 325 MG TAB PO SCH ×2 (03:00→09:02)
[2023-04-04] MEDS: Levothyroxine Sodium 25 MCG TAB PO SCH (05:37)
[2023-04-04 08:00] VITALS: TEMP 98.5
[2023-04-04] MEDS ORDERED: metFORMIN XR 500 MG TAB PO SCH ×2 (08:45→16:30)
[2023-04-04] MEDS ORDERED: Ezetimibe 10 MG TAB PO SCH (09:00)
[2023-04-04] MEDS: Atorvastatin Calcium 40 MG TAB PO SCH (09:05)
[2023-04-04] MEDS: Senokot 8.6 MG TAB PO SCH (09:07)
[2023-04-04] MEDS: Pregabalin 75 MG CAP PO SCH (09:07)
[2023-04-04] MEDS: Loratadine 10 MG TAB PO SCH (09:10)
[2023-04-04] MEDS: Multivit, Therapeutic 1 TAB PO SCH (09:11)
[2023-04-04] MEDS: Bupropion 150 MG XL TAB PO SCH (09:11)
[2023-04-04] MEDS: Polyethylene Glycol 3350 17 GM Packet PO SCH (10:42)
[2023-04-04 11:49] VITALS: BP 103/55
[2023-04-04] MEDS ORDERED: Sertraline 100 MG TAB PO SCH (21:00)
== END 2023-04-04 11:50 | DRG 87 ==
LOC: ERS 20:17 → 2NO 22:09 → OBSVTOIN 03-31 14:29 → 2SE 04-02 16:33
PROVIDERS: ADMIT Surgery; ATTEND Surgery
DX: S06.380A Contusion, laceration, and hemorrhage of brainstem without loss of consciousness, initial encounter (principal); E11.9 Type 2 diabetes mellitus without complications; E78.5 Hyperlipidemia, unspecified; M19.90 Unspecified osteoarthritis, unspecified site; Z96.611 Presence of right artificial shoulder joint; Z96.612 Presence of left artificial shoulder joint; S30.0XXA Contusion of lower back and pelvis, initial encounter; W19.XXXA Unspecified fall, initial encounter; M81.0 Age-related osteoporosis without current pathological fracture; E78.00 Pure hypercholesterolemia, unspecified; F32.A Depression, unspecified; Z90.49 Acquired absence of other specified parts of digestive tract; Z98.890 Other specified postprocedural states; Z88.5 Allergy status to narcotic agent; Y92.9 Unspecified place or not applicable
CPT/HCPCS: 12001; 36415; 36416; 70450; 70553; 72170; 72192; 80048; 80053; 81003; 83735; 84100; 85025; 85610; 85730; 93005; 93010; A9579; J1815; J3480

== ENCOUNTER 2023-04-29 10:03 | Outpatient (CLI) | payer MEDICARE, BC | END 2023-04-29 10:04 | disposition home or self-care (01) | LOC: CT 10:03 | PROVIDERS: ATTEND Surgery | DX: S06.38 Contusion, laceration, and hemorrhage of brainstem (principal); R90.89 Other abnormal findings on diagnostic imaging of central nervous system | CPT/HCPCS: 70450; 80048 ==

== ENCOUNTER 2023-06-09 22:27 | Emergency (ER) | payer MEDICARE ==
[2023-06-09] MEDS ORDERED: Lidocaine 1% PF 5 ML VIAL ONE (23:47)
[2023-06-09] MEDS ORDERED: Boostrix 0.5 ML (Tdap) VIAL (>/=7 yrs of age) ONE (23:47)
[2023-06-10] MEDS ORDERED: Acetaminophen 325 MG TAB ONE (01:30)
== END 2023-06-10 02:54 | disposition home or self-care (01) ==
LOC: ERS 22:27
DX: S09.90XA Unspecified injury of head, initial encounter (principal); S01.01XA Laceration without foreign body of scalp, initial encounter; E11.9 Type 2 diabetes mellitus without complications; E78.5 Hyperlipidemia, unspecified; Z23 Encounter for immunization; Z79.899 Other long term (current) drug therapy; Z79.82 Long term (current) use of aspirin; Z79.84 Long term (current) use of oral hypoglycemic drugs; W10.8XXA Fall (on) (from) other stairs and steps, initial encounter; Y92.015 Private garage of single-family (private) house as the place of occurrence of the external cause
CPT/HCPCS: 12001; 70450; 72125; 90471; 90715; 93005

== ENCOUNTER 2023-06-17 16:48 | Emergency (ER) | payer MEDICARE, BC | END 2023-06-17 17:13 | disposition home or self-care (01) | LOC: ERS 16:48 | DX: S01.01XD Laceration without foreign body of scalp, subsequent encounter (principal); E11.9 Type 2 diabetes mellitus without complications; E78.5 Hyperlipidemia, unspecified; Z79.82 Long term (current) use of aspirin; Z79.84 Long term (current) use of oral hypoglycemic drugs; Z79.899 Other long term (current) drug therapy; W18.30XD Fall on same level, unspecified, subsequent encounter ==

== ENCOUNTER 2023-07-18 16:50 | Inpatient (IN) | payer MEDICARE, BC ==
[2023-07-18] MEDS ORDERED: Morphine 4 MG/ML VIAL ONE ×2 (17:16→18:31)
[2023-07-18] MEDS ORDERED: Boostrix 0.5 ML (Tdap) VIAL (>/=7 yrs of age) ONE (17:16)
[2023-07-18 17:25] LABS: #Eosinphils 0.2 thou/uL (0.0-0.7); #Monocytes 0.7 thou/uL (0.11-0.59); #Neutrophils 5.6 thou/uL (1.40-6.50); %Basophils 0.5 % (0.0-1.0); %Eosinophils 2.1 % (0.0-10.0); %Monocytes 8.7 % (0.0-10.0); %Neutrophils 69.3 % (42.0-75.0); Hemoglobin 10.7 g/dL (12.0-16.0); Mean Corpuscular HGB CONC 32.4 g/dL (32.0-36.0); Mean Corpuscular Hemoglobin 29.7 pg (27.0-31.0); Mean Corpuscular Volume 91.7 fl (78.0-98.0); Mean Platelet Volume 9.2 fL (7.4-10.4); Platelet Count 307 10x3/uL (130-400); RBC Distribution Width 15.4 % (11.5-14.5)
[2023-07-18 17:40] LABS: INR-International Normal Ratio 1.1; PTT 26.3 sec (22.9-36.1); Prothrombin Time 14.4 sec (12.0-14.7)
[2023-07-18 17:54] LABS: ALT (SGPT) 14 U/L (8-55); AST (SGOT) 23 U/L (5-34); Albumin 3.4 g/dL (3.4-4.8); Alkaline Phosphatase 104 U/L (40-110); Anion Gap 10 mmol/L (10-20); BUN (Urea Nitrogen) 14 mg/dL (9.8-20.1); Bilirubin, Total 0.4 mg/dL (0.2-1.2); Calc. Creatinine Clearance 0 mL/min (70-130); Calcium 8.8 mg/dL (7.8-10.44); Carbon Dioxide 34 mmol/L (23-31); Chloride 95 mmol/L (98-107); Estimated GFR 88; Globulin 2.5 g/dL (2.4-3.5); Glucose 188 mg/dL (83-110); Potassium 2.9 mmol/L (3.5-5.1); Protein, Total 5.9 g/dL (5.8-8.1); Sodium 136 mmol/L (136-145)
[2023-07-18] MEDS ORDERED: Ketamine In 0.9 % NaCl 50 MG/5 ML SYRINGE ONE (20:34)
[2023-07-18] MEDS ORDERED: Dextrose 50% Abboject 50 ML SYRINGE SLOW IVP PRN (20:59)
[2023-07-18] MEDS ORDERED: TETANUS, DIPHTHERIA TOX,ADULT (TDVAX) 0.5 ML VIAL IM ONE (20:59)
[2023-07-18] MEDS ORDERED: Ondansetron PF 4 MG/2 ML Vial IVP PRN (20:59)
[2023-07-18] MEDS ORDERED: Dextrose 5% in Water 1,000 ML IV PRN (20:59)
[2023-07-18] MEDS ORDERED: Ondansetron ODT 4 MG TAB PO PRN (20:59)
[2023-07-18] MEDS ORDERED: hydrALAZINE 20 MG/ML VIAL SLOW IVP PRN (20:59)
[2023-07-18] MEDS ORDERED: Glucagon 1 MG/ML KIT IM PRN (20:59)
[2023-07-18] MEDS ORDERED: Potassium Chloride 20 MEQ in Premix 1 BAG IVPB SCH (21:00)
[2023-07-18] MEDS ORDERED: Potassium Chloride 20 MEQ TAB PO SCH (21:00)
[2023-07-18] MEDS: Famotidine 20 MG TAB PO SCH (21:00)
[2023-07-18] MEDS ORDERED: Morphine 2 MG/ML VIAL ONE (22:17)
[2023-07-18] MEDS: traMADol HCl 50 MG TAB PO PRN (23:35)
[2023-07-18] MEDS: Acetaminophen 325 MG TAB PO SCH (23:36)
[2023-07-18] MEDS: traMADol HCl 50 MG TAB PO SCH (23:40)
[2023-07-18] MEDS ORDERED: Lactated Ringer's 1,000 ML IV SCH (23:55)
[2023-07-19 02:47] VITALS: BMI 19.7
[2023-07-19] MEDS: Acetaminophen 325 MG TAB PO SCH ×3 (05:28→17:26)
[2023-07-19] MEDS: traMADol HCl 50 MG TAB PO SCH ×3 (05:28→17:26)
[2023-07-19 06:10] LABS: Bacteria/HPF None Seen HPF (None Seen); Bilirubin Negative (Negative); Blood, Urine Negative (Negative); CAUTI Indications for Culture Alt mental st,lethar; Clarity Clear (Clear); Glucose, Urine (Dipstick) 300 mg/dL (Negative); Ketone, Urine Trace mg/dL (Negative); Leukocyte Negative Leu/uL (Negative); Nitrite Negative (Negative); Protein, Urine (Dipstick) 20 mg/dL (Neg-Trace); RBC/HPF 0-3 HPF (0-3); Specific Gravity, Urine 1.026 (1.002-1.036); Squamous Epithelial 0-3 HPF (0-3); Urobilinogen Normal mg/dL (Less than 2); WBC/HPF 0-3 HPF (0-3)
[2023-07-19 06:14] LABS: Urine Culture Reflex No No
[2023-07-19] MEDS ORDERED: Dexmedetomidine 200 MCG/2 ML VIAL ONE (07:17)
[2023-07-19] MEDS ORDERED: Ondansetron HCl/PF 4 MG/2 ML Vial IVP PRN (07:39)
[2023-07-19] MEDS ORDERED: Promethazine HCl 25 MG/ML VIAL IM PRN (07:39)
[2023-07-19] MEDS: Famotidine 20 MG TAB PO SCH ×2 (07:54→20:03)
[2023-07-19] MEDS ORDERED: CEFAZOLIN 2 GM VIAL ONE (08:03)
[2023-07-19] MEDS ORDERED: Sodium Chloride 0.9% 100 ML ONE (08:03)
[2023-07-19] MEDS ORDERED: Tranexamic Acid 1,000 MG/10 ML VIAL ONE (08:03)
[2023-07-19] MEDS ORDERED: fentaNYL PF 100 MCG/2 ML SYRINGE ONE (08:14)
[2023-07-19] MEDS ORDERED: Albumin 5% 500 ML ONE (08:16)
[2023-07-19] MEDS ORDERED: PROPOFOL 20 ML ONE (08:19)
[2023-07-19] MEDS ORDERED: Ketorolac Tromethamine 30 MG/ML VIAL ONE ×2 (08:26→09:14)
[2023-07-19] MEDS ORDERED: PROPOFOL 200 MG/20 ML VIAL ONE (08:26)
[2023-07-19] MEDS ORDERED: PHENYLEPHRINE-NS 100 MCG/ML 10 ML SYRINGE ONE ×2 (08:26→08:46)
[2023-07-19] MEDS ORDERED: Ondansetron PF 4 MG/2 ML Vial ONE ×2 (08:26→08:38)
[2023-07-19] MEDS ORDERED: fentaNYL 50 mcg/mL 1 mL Vial ONE (09:32)
[2023-07-19 11:31] LABS: Anion Gap 11 mmol/L (10-20); BUN (Urea Nitrogen) 9 mg/dL (9.8-20.1); Calc. Creatinine Clearance 60 mL/min (70-130); Calcium 7.9 mg/dL (7.8-10.44); Carbon Dioxide 32 mmol/L (23-31); Chloride 98 mmol/L (98-107); Estimated GFR 88; Glucose 186 mg/dL (83-110); Potassium 3.4 mmol/L (3.5-5.1); Sodium 138 mmol/L (136-145)
[2023-07-19] MEDS: HumaLOG 300 UNITS/3 ML VIAL SC PRN (13:16)
[2023-07-19] MEDS: HYDROmorphone 0.5 MG/0.5 ML SYRINGE SLOW IVP PRN ×2 (13:27→20:07)
[2023-07-19] MEDS: CEFAZOLIN 2 GM in Sodium Chloride 0.9% 100 ML IVPB SCH (15:14)
[2023-07-19] MEDS ORDERED: Potassium Chloride 20 MEQ TAB PO SCH (20:00)
[2023-07-19] MEDS: Aspirin 81 mg Enteric Coated Tablet PO SCH (20:43)
[2023-07-20] MEDS: Acetaminophen 325 MG TAB PO SCH ×3 (00:15→11:53)
[2023-07-20] MEDS: traMADol HCl 50 MG TAB PO PRN ×2 (00:15→05:28)
[2023-07-20] MEDS: CEFAZOLIN 2 GM in Sodium Chloride 0.9% 100 ML IVPB SCH (00:16)
[2023-07-20] MEDS: traMADol HCl 50 MG TAB PO SCH ×5 (00:23→23:37)
[2023-07-20 05:54] LABS: #Eosinphils 0.2 thou/uL (0.0-0.7); #Monocytes 0.8 thou/uL (0.11-0.59); #Neutrophils 6.5 thou/uL (1.40-6.50); %Basophils 0.3 % (0.0-1.0); %Eosinophils 1.9 % (0.0-10.0); %Lymphocytes 13.5 % (21.0-51.0); Mean Corpuscular HGB CONC 32.6 g/dL (32.0-36.0); Mean Corpuscular Hemoglobin 30.3 pg (27.0-31.0); Mean Corpuscular Volume 93.1 fl (78.0-98.0); Platelet Count 214 10x3/uL (130-400); RBC Distribution Width 15.5 % (11.5-14.5); Red Blood Cell (RBC) Count 2.31 mill/uL (4.20-5.40); White Blood Cell (WBC) Count 8.7 10x3/uL (4.8-10.8)
[2023-07-20 06:29] LABS: Hematocrit 21.5 % (36.0-47.0)
[2023-07-20 06:32] LABS: Anion Gap 10 mmol/L (10-20); BUN (Urea Nitrogen) 9 mg/dL (9.8-20.1); Calc. Creatinine Clearance 65 mL/min (70-130); Calcium 7.9 mg/dL (7.8-10.44); Carbon Dioxide 34 mmol/L (23-31); Chloride 102 mmol/L (98-107); Estimated GFR 90; Glucose 125 mg/dL (83-110); Magnesium 1.6 mg/dL (1.6-2.6); Potassium 3.6 mmol/L (3.5-5.1); Sodium 142 mmol/L (136-145)
[2023-07-20] MEDS: Famotidine 20 MG TAB PO SCH ×2 (08:36→20:01)
[2023-07-20] MEDS: Aspirin 81 mg Enteric Coated Tablet PO SCH ×2 (08:36→20:01)
[2023-07-20] MEDS: HYDROmorphone 0.5 MG/0.5 ML SYRINGE SLOW IVP PRN (08:36)
[2023-07-20] MEDS ORDERED: Bisacodyl 5 MG TAB PO PRN (13:45)
[2023-07-20] MEDS ORDERED: Magnesium 2 GM/50 ML(in water) 2 GM in Premix 1 BAG IVPB SCH (13:45)
[2023-07-20] MEDS: Ibuprofen 200 MG TAB PO SCH ×2 (14:05→21:51)
[2023-07-20] MEDS ORDERED: Gabapentin 300 MG CAP PO SCH (15:00)
[2023-07-20] MEDS: Acetaminophen 500 MG TAB PO SCH ×2 (17:23→23:37)
[2023-07-20] MEDS: HumaLOG 300 UNITS/3 ML VIAL SC PRN (17:47)
[2023-07-20 17:51] LABS: Hematocrit 23.2 % (36.0-47.0); Hemoglobin 7.4 g/dL (12.0-16.0)
[2023-07-20] MEDS: Pregabalin 75 MG CAP PO SCH (20:01)
[2023-07-20] MEDS: Senokot S 8.6-50 MG TAB PO SCH (20:02)
[2023-07-21] MEDS: Ibuprofen 200 MG TAB PO SCH (05:06)
[2023-07-21] MEDS: traMADol HCl 50 MG TAB PO SCH ×4 (05:06→23:09)
[2023-07-21] MEDS: Levothyroxine Sodium 25 MCG TAB PO SCH (05:06)
[2023-07-21] MEDS: Acetaminophen 500 MG TAB PO SCH ×5 (05:07→23:09)
[2023-07-21] MEDS: HumaLOG 300 UNITS/3 ML VIAL SC PRN (06:00)
[2023-07-21 06:01] LABS: #Eosinphils 0.2 thou/uL (0.0-0.7); #Monocytes 0.8 thou/uL (0.11-0.59); #Neutrophils 7.5 thou/uL (1.40-6.50); %Basophils 0.3 % (0.0-1.0); %Eosinophils 2.5 % (0.0-10.0); %Lymphocytes 10.7 % (21.0-51.0); %Monocytes 8.1 % (0.0-10.0); %Neutrophils 77.8 % (42.0-75.0); Hemoglobin 7.9 g/dL (12.0-16.0); Mean Corpuscular HGB CONC 30.4 g/dL (32.0-36.0); Mean Corpuscular Hemoglobin 29.9 pg (27.0-31.0); Mean Corpuscular Volume 98.5 fl (78.0-98.0); Mean Platelet Volume 10.3 fL (7.4-10.4); Platelet Count 218 10x3/uL (130-400); RBC Distribution Width 15.8 % (11.5-14.5); Red Blood Cell (RBC) Count 2.64 mill/uL (4.20-5.40); White Blood Cell (WBC) Count 9.6 10x3/uL (4.8-10.8)
[2023-07-21] MEDS: Aspirin 81 mg Enteric Coated Tablet PO SCH ×2 (09:19→22:18)
[2023-07-21] MEDS: Senokot S 8.6-50 MG TAB PO SCH ×2 (09:19→22:30)
[2023-07-21] MEDS: Famotidine 20 MG TAB PO SCH ×2 (09:19→22:29)
[2023-07-21] MEDS: Pregabalin 75 MG CAP PO SCH ×2 (09:19→22:30)
[2023-07-21] MEDS: Atorvastatin Calcium 40 MG TAB PO SCH (09:19)
[2023-07-22] MEDS: Acetaminophen 500 MG TAB PO SCH ×3 (05:52→17:21)
[2023-07-22] MEDS: Levothyroxine Sodium 25 MCG TAB PO SCH (05:52)
[2023-07-22] MEDS: traMADol HCl 50 MG TAB PO SCH ×3 (05:52→17:21)
[2023-07-22 09:11] LABS: #Eosinphils 0.1 thou/uL (0.0-0.7); #Monocytes 0.6 thou/uL (0.11-0.59); #Neutrophils 6.7 thou/uL (1.40-6.50); %Basophils 0.2 % (0.0-1.0); %Eosinophils 1.7 % (0.0-10.0); %Lymphocytes 10.2 % (21.0-51.0); %Monocytes 7.3 % (0.0-10.0); %Neutrophils 80.2 % (42.0-75.0); Hemoglobin 7.6 g/dL (12.0-16.0); Mean Corpuscular HGB CONC 31.7 g/dL (32.0-36.0); Mean Corpuscular Volume 94.9 fl (78.0-98.0); Mean Platelet Volume 9.5 fL (7.4-10.4); Platelet Count 286 10x3/uL (130-400); RBC Distribution Width 15.6 % (11.5-14.5); Red Blood Cell (RBC) Count 2.53 mill/uL (4.20-5.40); White Blood Cell (WBC) Count 8.3 10x3/uL (4.8-10.8)
[2023-07-22 09:36] LABS: Anion Gap 11 mmol/L (10-20); BUN (Urea Nitrogen) 11 mg/dL (9.8-20.1); Calc. Creatinine Clearance 68 mL/min (70-130); Calcium 8.2 mg/dL (7.8-10.44); Carbon Dioxide 31 mmol/L (23-31); Chloride 102 mmol/L (98-107); Estimated GFR 91; Glucose 207 mg/dL (83-110); Potassium 3.9 mmol/L (3.5-5.1); Sodium 140 mmol/L (136-145)
[2023-07-22] MEDS: Pregabalin 75 MG CAP PO SCH ×2 (10:18→20:26)
[2023-07-22] MEDS: Aspirin 81 mg Enteric Coated Tablet PO SCH ×2 (10:18→20:26)
[2023-07-22] MEDS: Senokot S 8.6-50 MG TAB PO SCH ×2 (10:18→20:30)
[2023-07-22] MEDS: Atorvastatin Calcium 40 MG TAB PO SCH (10:18)
[2023-07-22] MEDS: Ferrous Sulfate 325 MG TAB PO SCH (17:22)
[2023-07-22] MEDS: HumaLOG 300 UNITS/3 ML VIAL SC PRN (17:38)
[2023-07-22] MEDS: Ascorbic Acid 500 mg Chewable Tablet PO SCH (20:27)
[2023-07-23] MEDS: Acetaminophen 500 MG TAB PO SCH ×5 (00:22→22:28)
[2023-07-23] MEDS: traMADol HCl 50 MG TAB PO SCH ×5 (00:23→22:28)
[2023-07-23 05:06] LABS: #Eosinphils 0.3 thou/uL (0.0-0.7); #Monocytes 0.6 thou/uL (0.11-0.59); #Neutrophils 5.1 thou/uL (1.40-6.50); %Basophils 0.3 % (0.0-1.0); %Eosinophils 3.6 % (0.0-10.0); %Lymphocytes 17.8 % (21.0-51.0); %Monocytes 7.6 % (0.0-10.0); Hematocrit 22.1 % (36.0-47.0); Mean Corpuscular HGB CONC 31.7 g/dL (32.0-36.0); Mean Corpuscular Hemoglobin 29.9 pg (27.0-31.0); Mean Corpuscular Volume 94.4 fl (78.0-98.0); Mean Platelet Volume 9.7 fL (7.4-10.4); Platelet Count 302 10x3/uL (130-400); RBC Distribution Width 15.7 % (11.5-14.5); Red Blood Cell (RBC) Count 2.34 mill/uL (4.20-5.40); White Blood Cell (WBC) Count 7.2 10x3/uL (4.8-10.8)
[2023-07-23] MEDS: Levothyroxine Sodium 25 MCG TAB PO SCH (05:42)
[2023-07-23 05:43] LABS: Anion Gap 10 mmol/L (10-20); BUN (Urea Nitrogen) 10 mg/dL (9.8-20.1); Calc. Creatinine Clearance 73 mL/min (70-130); Carbon Dioxide 32 mmol/L (23-31); Chloride 103 mmol/L (98-107); Estimated GFR 93; Glucose 129 mg/dL (83-110); Potassium 3.3 mmol/L (3.5-5.1); Sodium 142 mmol/L (136-145)
[2023-07-23] MEDS: Aspirin 81 mg Enteric Coated Tablet PO SCH ×2 (09:59→22:28)
[2023-07-23] MEDS: Pregabalin 75 MG CAP PO SCH ×2 (09:59→22:27)
[2023-07-23] MEDS: Bupropion 150 MG SR.TAB PO SCH (09:59)
[2023-07-23] MEDS: Potassium Chloride 20 MEQ TAB PO SCH ×2 (09:59→17:32)
[2023-07-23] MEDS: Atorvastatin Calcium 40 MG TAB PO SCH (10:00)
[2023-07-23] MEDS: Ferrous Sulfate 325 MG TAB PO SCH ×2 (10:00→17:38)
[2023-07-23] MEDS: Ascorbic Acid 500 mg Chewable Tablet PO SCH ×2 (10:00→22:28)
[2023-07-23] MEDS: Senokot S 8.6-50 MG TAB PO SCH (22:27)
[2023-07-24] MEDS: Levothyroxine Sodium 25 MCG TAB PO SCH (05:34)
[2023-07-24] MEDS: Acetaminophen 500 MG TAB PO SCH ×3 (05:34→17:05)
[2023-07-24] MEDS: traMADol HCl 50 MG TAB PO SCH ×3 (05:34→17:04)
[2023-07-24] MEDS ORDERED: Ventilator Sedation Protocol 1 EACH FS ONE (05:48)
[2023-07-24] MEDS: Aspirin 81 mg Enteric Coated Tablet PO SCH (09:41)
[2023-07-24] MEDS: Ferrous Sulfate 325 MG TAB PO SCH ×2 (09:41→17:04)
[2023-07-24] MEDS: Ascorbic Acid 500 mg Chewable Tablet PO SCH (09:41)
[2023-07-24] MEDS: Bupropion 150 MG SR.TAB PO SCH (09:41)
[2023-07-24] MEDS: Atorvastatin Calcium 40 MG TAB PO SCH (09:42)
[2023-07-24] MEDS: Pregabalin 75 MG CAP PO SCH (09:42)
[2023-07-24] MEDS: Senokot S 8.6-50 MG TAB PO SCH ×2 (09:42→09:47)
[2023-07-24] MEDS: HumaLOG 300 UNITS/3 ML VIAL SC PRN (13:16)
[2023-07-24 13:17] VITALS: BP 135/69; TEMP 98.5
== END 2023-07-24 18:10 | DRG 481 ==
LOC: ERS 16:50 → SURG A 19:58
PROVIDERS: ADMIT Surgery; ATTEND Surgery
PROC: 0QS606Z Reposition Right Upper Femur with Intramedullary Internal Fixation Device, Open Approach (ICD-10-PCS; principal; 2023-07-19)
PROC: 30233J1 Transfusion of Nonautologous Serum Albumin into Peripheral Vein, Percutaneous Approach (ICD-10-PCS; 2023-07-19)
DX: S72.21XA Displaced subtrochanteric fracture of right femur, initial encounter for closed fracture (principal); D62 Acute posthemorrhagic anemia; W18.30XA Fall on same level, unspecified, initial encounter; S01.01XA Laceration without foreign body of scalp, initial encounter; Z88.8 Allergy status to other drugs, medicaments and biological substances; Z79.82 Long term (current) use of aspirin; Z79.84 Long term (current) use of oral hypoglycemic drugs; Z79.899 Other long term (current) drug therapy; M19.90 Unspecified osteoarthritis, unspecified site; E78.5 Hyperlipidemia, unspecified; Z90.49 Acquired absence of other specified parts of digestive tract; F32.A Depression, unspecified; E83.42 Hypomagnesemia; E11.65 Type 2 diabetes mellitus with hyperglycemia; D50.9 Iron deficiency anemia, unspecified; I10 Essential (primary) hypertension
CPT/HCPCS: 12001; 36415; 36416; 70450; 71045; 72125; 72128; 72132; 72170; 80048; 80053; 81001; 83735; 84100; 85025; 85610; 85730; 90471; 90715; 93005; 93010; 96374; 96375; 96376; C1713; G0390; J1170; J1815; J1885; J2270; J2272; J2405; J2704; J3010; J3475; J3480; J3490; J7120; P9045

== ENCOUNTER 2023-09-18 10:32 | Outpatient (CLI) | payer MEDICARE, BC | END 2023-09-18 10:33 | disposition home or self-care (01) | LOC: HS RAD 10:32 | PROVIDERS: ATTEND Family Medicine | DX: R10.9 Unspecified abdominal pain (principal); K46.9 Unspecified abdominal hernia without obstruction or gangrene; M41.9 Scoliosis, unspecified; K56.609 Unspecified intestinal obstruction, unspecified as to partial versus complete obstruction; Z98.890 Other specified postprocedural states | CPT/HCPCS: 74018 ==

== ENCOUNTER 2024-01-22 13:46 | Inpatient (IN) | payer MEDICARE, BC ==
[2024-01-22] MEDS ORDERED: Nitroglycerin 2% Ointment 1 INCH/1 GM Packet ONE (14:04)
[2024-01-22] MEDS ORDERED: Furosemide 40 MG (4 mL) VIAL ONE (14:04)
[2024-01-22 14:23] LABS: #Basophils 0.05 10x3/uL (0.0-0.2); %Basophils 0.3 % (0.0-1.0); %Eosinophils 0.2 % (0.0-10.0); %Lymphocytes 10.3 % (21.0-51.0); %Neutrophils 81.6 % (42.0-75.0); Hematocrit 35.8 % (36.0-47.0); Mean Corpuscular HGB CONC 33.5 g/dL (32.0-36.0); Mean Corpuscular Hemoglobin 32.9 pg (27.0-31.0); Mean Corpuscular Volume 98.1 fL (78.0-98.0); Mean Platelet Volume 9.7 fL (7.4-10.4); Platelet Count 292 10x3/uL (130-400); RBC Distribution Width 14.3 % (11.5-14.5); Red Blood Cell (RBC) Count 3.65 mill/uL (4.20-5.40)
[2024-01-22] MEDS ORDERED: Vancomycin 1 GM/200 ML (FROZEN) BAG ONE (14:34)
[2024-01-22] MEDS ORDERED: Piperacillin/Tazobactam 3.375 GM VIAL ONE (14:34)
[2024-01-22] MEDS ORDERED: Sodium Chloride 0.9% 100 ML ONE (14:34)
[2024-01-22 14:40] LABS: ALT (SGPT) 18 U/L (8-55); AST (SGOT) 21 U/L (5-34); Albumin 3.4 g/dL (3.4-4.8); Alkaline Phosphatase 80 U/L (40-110); Anion Gap 15 mmol/L (10-20); BUN (Urea Nitrogen) 15 mg/dL (9.8-20.1); Bilirubin, Total 0.7 mg/dL (0.2-1.2); Calc. Creatinine Clearance 0 mL/min (70-130); Calcium 8.4 mg/dL (7.8-10.44); Carbon Dioxide 27 mmol/L (23-31); Chloride 105 mmol/L (98-107); Estimated GFR 86; Globulin 2.8 g/dL (2.4-3.5); Glucose 252 mg/dL (83-110); Potassium 3.5 mmol/L (3.5-5.1); Protein, Total 6.2 g/dL (5.8-8.1); Sodium 143 mmol/L (136-145)
[2024-01-22 14:44] LABS: Troponin I 0.092 ng/mL (< 0.028)
[2024-01-22 16:13] LABS: Bacteria/HPF None Seen HPF (None Seen); Bilirubin Negative (Negative); Blood, Urine Negative (Negative); CAUTI Indications for Culture Dysuria,urgency,freq; Clarity Clear (Clear); Glucose, Urine (Dipstick) Normal (Negative); Ketone, Urine Negative (Negative); Leukocyte 250 Leu/uL (Negative); Nitrite Negative (Negative); Protein, Urine (Dipstick) Negative (Neg-Trace); RBC/HPF 0-3 HPF (0-3); Specific Gravity, Urine 1.008 (1.002-1.036); Squamous Epithelial 0-3 HPF (0-3); Urobilinogen Normal mg/dL (Less than 2); WBC/HPF 0-3 HPF (0-3); pH, Urine 5.5 (5.0-9.0)
[2024-01-22 16:14] LABS: Urine Culture Reflex No No
[2024-01-22] MEDS ORDERED: Ipratropium/Albuterol 3 ML NEB NEB PRN (16:41)
[2024-01-22] MEDS ORDERED: Acetaminophen 325 MG TAB PO PRN (16:41)
[2024-01-22] MEDS ORDERED: Ondansetron PF 4 MG/2 ML Vial IVP PRN (16:41)
[2024-01-22 16:48] LABS: Influenza A by NAA Not Detected (NotDetected); Influenza B by NAA Not Detected (NotDetected); SARS-CoV-2 NAA Rapid Test Not Detected (NotDetected)
[2024-01-22] MEDS ORDERED: HYDROcodone/Acetaminophen 7.5/325 mg Tablet PO PRN (16:51)
[2024-01-22 17:28] VITALS: BMI 16.7
[2024-01-22] MEDS: Polyethylene Glycol 3350 17 GM Packet PO SCH (19:16)
[2024-01-22] MEDS: Piperacillin/Tazobactam 3.375 GM in Sodium Chloride 0.9% 100 ML IVPB SCH (19:17)
[2024-01-22] MEDS: Enoxaparin 30 MG (0.3 mL) SYRINGE SC SCH (19:17)
[2024-01-22] MEDS: Ezetimibe 10 MG TAB PO SCH (21:36)
[2024-01-22] MEDS: Sertraline 100 MG TAB PO SCH (21:36)
[2024-01-22] MEDS: Melatonin 3 MG TAB PO SCH (21:36)
[2024-01-22] MEDS: Aspirin 81 mg Enteric Coated Tablet PO SCH (21:36)
[2024-01-22] MEDS: Ascorbic Acid 500 mg Chewable Tablet PO SCH (21:36)
[2024-01-22] MEDS: Atorvastatin Calcium 40 MG TAB PO SCH (21:36)
[2024-01-22] MEDS: Docusate 100 MG CAP PO SCH (21:36)
[2024-01-22] MEDS: methylPREDNISolone Sod Succ 40 MG VIAL IVP SCH (21:38)
[2024-01-22 22:06] LABS: Legionella Urinary Ag Negative (Negative); Strep pneumo Urine Ag NEGATIVE (NEGATIVE)
[2024-01-22] MEDS ORDERED: Dextrose 5% in Water 1,000 ML IV PRN (23:10)
[2024-01-22] MEDS ORDERED: Dextrose 50% Abboject 50 ML SYRINGE SLOW IVP PRN (23:10)
[2024-01-22] MEDS ORDERED: Glucagon 1 MG/ML KIT IM PRN (23:10)
[2024-01-23] MEDS: Famotidine/PF 20 mg/2ml Vial SLOW IVP SCH ×2 (01:58→08:53)
[2024-01-23 04:04] LABS: Actual Bicarbonate (HCO3v) 31.6 mEq/L (22-28); Base Excess 8.7 mEq/L (-2.0 to +3.0); Calcium, Ionized (venous) 0.94 mmol/L (1.16-1.32); Chloride (VBG) 98 mmol/L (98-106); Hematocrit-VBG 35 % (36.0-47.0); Hemoglobin (Hb) 11.8 g/dL (11.7-16.1); Potassium (VBG) 3.42 mmol/L (3.70-5.30); Sodium 140 mmol/L (133-146); pH (venous) 7.544 (7.32-7.43)
[2024-01-23 04:17] LABS: #Basophils Less than 0.03 10x3/uL (0.0-0.2); #Eosinphils Less than 0.03 10x3/uL (0.0-0.7); %Basophils 0.1 % (0.0-1.0); %Lymphocytes 6.7 % (21.0-51.0); %Monocytes 4.3 % (0.0-10.0); %Neutrophils 88.4 % (42.0-75.0); Hematocrit 34.8 % (36.0-47.0); Hemoglobin 11.6 g/dL (12.0-16.0); Mean Corpuscular HGB CONC 33.3 g/dL (32.0-36.0); Mean Corpuscular Hemoglobin 32.9 pg (27.0-31.0); Mean Corpuscular Volume 98.6 fL (78.0-98.0); Mean Platelet Volume 10.9 fL (7.4-10.4); Platelet Count 232 10x3/uL (130-400); RBC Distribution Width 14.6 % (11.5-14.5); Red Blood Cell (RBC) Count 3.53 mill/uL (4.20-5.40)
[2024-01-23 04:52] LABS: Anion Gap 15 mmol/L (10-20); BUN (Urea Nitrogen) 13 mg/dL (9.8-20.1); Calc. Creatinine Clearance 54 mL/min (70-130); Calcium 8.3 mg/dL (7.8-10.44); Carbon Dioxide 29 mmol/L (23-31); Chloride 100 mmol/L (98-107); Estimated GFR 88; Glucose 263 mg/dL (83-110); Magnesium 1.7 mg/dL (1.6-2.6); Potassium 3.1 mmol/L (3.5-5.1); Sodium 141 mmol/L (136-145)
[2024-01-23 04:55] LABS: Vancomycin, Random 6.4 ug/mL (See Comment)
[2024-01-23] MEDS ORDERED: Electrolyte Replacement Protocol 1 EACH FS PRN (06:05)
[2024-01-23] MEDS: Levothyroxine Sodium 25 MCG TAB PO SCH (06:41)
[2024-01-23] MEDS: Magnesium 2 GM/50 ML(in water) 2 GM in Premix 1 BAG IVPB SCH (06:46)
[2024-01-23] MEDS: Vancomycin 1 GM in Premix 1 BAG IVPB SCH (08:42)
[2024-01-23] MEDS: Potassium Chloride 20 MEQ in Premix 1 BAG IVPB SCH (08:44)
[2024-01-23] MEDS: Furosemide 40 MG (4 mL) VIAL SLOW IVP SCH (08:53)
[2024-01-23] MEDS: Enoxaparin 40 MG (0.4 mL) SYRINGE SC SCH (08:53)
[2024-01-23] MEDS: Pantoprazole 40 MG VIAL IVP SCH (08:54)
[2024-01-23] MEDS ORDERED: Enoxaparin 30 MG (0.3 mL) SYRINGE SC SCH (09:00)
[2024-01-23] MEDS ORDERED: Morphine 4 MG/ML VIAL SLOW IVP PRN (09:35)
[2024-01-23] MEDS: Polyethylene Glycol 3350 17 GM Packet PO SCH (10:17)
[2024-01-23] MEDS: Calcium Carbonate 600 MG + Vit D TAB PO SCH (10:17)
[2024-01-23] MEDS: Bupropion 150 MG SR.TAB PO SCH (10:17)
[2024-01-23] MEDS ORDERED: Vancomycin (BATCH) 1.5 GM in Premix 1 BAG IVPB SCH (15:00)
[2024-01-23 16:42] VITALS: BMI 16.8
[2024-01-24] MEDS: HumaLOG 300 UNITS/3 ML VIAL SC PRN ×2 (06:31→20:43)
[2024-01-24 07:47] LABS: Vancomycin, Random 17.3 ug/mL (See Comment)
[2024-01-24] MEDS: HYDROcodone/Acetaminophen 5/325 mg Tablet PO PRN (08:54)
[2024-01-24 10:46] LABS: #Basophils Less than 0.03 10x3/uL (0.0-0.2); #Eosinphils Less than 0.03 10x3/uL (0.0-0.7); %Basophils 0.1 % (0.0-1.0); %Eosinophils 0.1 % (0.0-10.0); %Monocytes 5.8 % (0.0-10.0); %Neutrophils 84.7 % (42.0-75.0); Hematocrit 40.2 % (36.0-47.0); Hemoglobin 13.4 g/dL (12.0-16.0); Mean Corpuscular HGB CONC 33.3 g/dL (32.0-36.0); Mean Corpuscular Hemoglobin 31.8 pg (27.0-31.0); Mean Corpuscular Volume 95.5 fL (78.0-98.0); Mean Platelet Volume 9.6 fL (7.4-10.4); Platelet Count 307 10x3/uL (130-400); RBC Distribution Width 13.9 % (11.5-14.5); Red Blood Cell (RBC) Count 4.21 mill/uL (4.20-5.40)
[2024-01-24 11:14] LABS: Anion Gap 16 mmol/L (10-20); BUN (Urea Nitrogen) 11 mg/dL (9.8-20.1); Calc. Creatinine Clearance 53 mL/min (70-130); Calcium 8.6 mg/dL (7.8-10.44); Carbon Dioxide 35 mmol/L (23-31); Chloride 92 mmol/L (98-107); Estimated GFR 88; Glucose 238 mg/dL (83-110); Potassium 2.6 mmol/L (3.5-5.1); Sodium 140 mmol/L (136-145)
[2024-01-24] MEDS: Potassium Chloride 20 MEQ in Premix 1 BAG IVPB SCH (11:47)
[2024-01-24] MEDS: Magnesium 2 GM/50 ML(in water) 2 GM in Premix 1 BAG IVPB SCH ×2 (11:48→22:21)
[2024-01-24 16:58] LABS: Magnesium 1.9 mg/dL (1.6-2.6); Potassium 3.2 mmol/L (3.5-5.1)
[2024-01-25 06:56] LABS: #Basophils Less than 0.03 10x3/uL (0.0-0.2); %Basophils 0.2 % (0.0-1.0); %Eosinophils 0.3 % (0.0-10.0); %Lymphocytes 15.1 % (21.0-51.0); %Monocytes 7.6 % (0.0-10.0); %Neutrophils 76.5 % (42.0-75.0); Hematocrit 40.9 % (36.0-47.0); Hemoglobin 13.8 g/dL (12.0-16.0); Mean Corpuscular HGB CONC 33.7 g/dL (32.0-36.0); Mean Corpuscular Hemoglobin 31.9 pg (27.0-31.0); Mean Corpuscular Volume 94.7 fL (78.0-98.0); Mean Platelet Volume 9.8 fL (7.4-10.4); Platelet Count 281 10x3/uL (130-400); RBC Distribution Width 13.8 % (11.5-14.5); Red Blood Cell (RBC) Count 4.32 mill/uL (4.20-5.40); Vancomycin, Random 11.2 ug/mL (See Comment)
[2024-01-25 06:58] LABS: Anion Gap 15 mmol/L (10-20); BUN (Urea Nitrogen) 10 mg/dL (9.8-20.1); Calc. Creatinine Clearance 55 mL/min (70-130); Calcium 8.6 mg/dL (7.8-10.44); Carbon Dioxide 30 mmol/L (23-31); Chloride 94 mmol/L (98-107); Estimated GFR 89; Glucose 237 mg/dL (83-110); Magnesium 2.2 mg/dL (1.6-2.6); Potassium 3.6 mmol/L (3.5-5.1); Sodium 135 mmol/L (136-145)
[2024-01-25] MEDS ORDERED: Vancomycin 1 GM in Premix 1 BAG IVPB SCH (09:00)
[2024-01-25] MEDS: Amoxicillin/Potassium Clav 875 MG TAB PO SCH (10:15)
[2024-01-25 11:20] VITALS: BP 124/83; TEMP 97.7
== END 2024-01-25 11:38 | disposition home health service (06) | DRG 871 ==
LOC: SUATTDRO 13:46 → ERS 13:46 → IMCU/EMU 16:52 → T4-A 01-24 15:33
PROVIDERS: ADMIT Internal Medicine; ATTEND Family Medicine
PROC: 3E03329 Introduction of Other Anti-infective into Peripheral Vein, Percutaneous Approach (ICD-10-PCS; principal; 2024-01-22)
PROC: 5A09357 Assistance with Respiratory Ventilation, Less than 24 Consecutive Hours, Continuous Positive Airway Pressure (ICD-10-PCS; 2024-01-22)
DX: A41.9 Sepsis, unspecified organism (principal); I21.A1 Myocardial infarction type 2; J96.01 Acute respiratory failure with hypoxia; J69.0 Pneumonitis due to inhalation of food and vomit; I50.33 Acute on chronic diastolic (congestive) heart failure; I11.0 Hypertensive heart disease with heart failure; Z51.5 Encounter for palliative care; Z66 Do not resuscitate; R53.81 Other malaise; E11.65 Type 2 diabetes mellitus with hyperglycemia; E03.9 Hypothyroidism, unspecified; M19.90 Unspecified osteoarthritis, unspecified site; E78.5 Hyperlipidemia, unspecified; K21.9 Gastro-esophageal reflux disease without esophagitis; K59.00 Constipation, unspecified; G47.00 Insomnia, unspecified; E87.6 Hypokalemia; F39 Unspecified mood [affective] disorder; Z88.5 Allergy status to narcotic agent; Z79.899 Other long term (current) drug therapy; Z79.890 Hormone replacement therapy; Z79.82 Long term (current) use of aspirin
CPT/HCPCS: 36415; 36416; 71045; 74018; 80048; 80053; 80202; 81001; 82805; 83605; 83735; 83880; 84145; 84484; 85025; 87040; 87449; 87899; 93005; 93306; 94660; 96365; 96367; 96375; C9113; J1650; J1815; J1940; J2543; J2920; J3370-JW; J3475; J3480; J3490; S0028

== ENCOUNTER 2024-05-15 07:20 | Inpatient (IN) | payer MEDICARE, BC ==
[2024-05-15 08:02] LABS: #Basophils 0.06 10x3/uL (0.0-0.2); %Basophils 0.4 % (0.0-1.0); %Eosinophils 0.4 % (0.0-10.0); %Neutrophils 81.7 % (42.0-75.0); Hematocrit 39.7 % (36.0-47.0); Mean Corpuscular HGB CONC 32.7 g/dL (32.0-36.0); Mean Corpuscular Hemoglobin 31.6 pg (27.0-31.0); Mean Corpuscular Volume 96.4 fL (78.0-98.0); Mean Platelet Volume 9.4 fL (7.4-10.4); Platelet Count 254 10x3/uL (130-400); RBC Distribution Width 14.4 % (11.5-14.5); Red Blood Cell (RBC) Count 4.12 mill/uL (4.20-5.40)
[2024-05-15] MEDS ORDERED: Azithromycin 500 MG VIAL ONE (08:11)
[2024-05-15] MEDS ORDERED: cefTRIAXone (ROCEPHIN) 1 GM VIAL ONE (08:11)
[2024-05-15] MEDS ORDERED: Sodium Chloride 0.9% 100 ML ONE (08:11)
[2024-05-15 08:41] LABS: ALT (SGPT) 22 U/L (8-55); AST (SGOT) 26 U/L (5-34); Alkaline Phosphatase 98 U/L (40-110); Anion Gap 15 mmol/L (10-20); BUN (Urea Nitrogen) 11 mg/dL (9.8-20.1); Bilirubin, Total 0.9 mg/dL (0.2-1.2); Calc. Creatinine Clearance 0 mL/min (70-130); Calcium 8.4 mg/dL (7.8-10.44); Carbon Dioxide 25 mmol/L (23-31); Chloride 107 mmol/L (98-107); Estimated GFR 89; Globulin 2.2 g/dL (2.4-3.5); Glucose 188 mg/dL (83-110); Magnesium 1.7 mg/dL (1.6-2.6); Potassium 3.6 mmol/L (3.5-5.1); Protein, Total 5.2 g/dL (5.8-8.1); Sodium 143 mmol/L (136-145)
[2024-05-15 08:45] LABS: Troponin I 0.067 ng/mL (< 0.028)
[2024-05-15] MEDS ORDERED: Dextrose 5% in Water 1,000 ML IV PRN (10:03)
[2024-05-15] MEDS ORDERED: Glucagon 1 MG/ML KIT IM PRN (10:03)
[2024-05-15] MEDS ORDERED: Dextrose 50% Abboject 50 ML SYRINGE SLOW IVP PRN (10:03)
[2024-05-15] MEDS ORDERED: Simethicone Chewable 80 MG TAB PO PRN (10:10)
[2024-05-15] MEDS ORDERED: Ipratropium/Albuterol 3 ML NEB NEB PRN (10:17)
[2024-05-15] MEDS: Furosemide 40 MG (4 mL) VIAL SLOW IVP SCH ×2 (11:14→16:37)
[2024-05-15 12:03] LABS: Troponin I 0.151 ng/mL (< 0.028)
[2024-05-15 12:21] VITALS: BMI 18.2
[2024-05-15] MEDS: Insulin Lispro 100 UNIT/ML 10 ML VIAL SC PRN (12:26)
[2024-05-15 16:20] LABS: Troponin I 0.122 ng/mL (< 0.028)
[2024-05-15] MEDS: Magnesium 2 GM/50 ML(in water) 2 GM in Premix 1 BAG IVPB SCH (16:37)
[2024-05-15] MEDS: HYDROcodone/Acetaminophen 7.5/325 mg Tablet PO PRN (16:37)
[2024-05-15] MEDS: Potassium Chloride 20 MEQ TAB PO SCH (16:37)
[2024-05-15] MEDS ORDERED: Electrolyte Replacement Protocol 1 EACH FS SCH (18:45)
[2024-05-15] MEDS: Pregabalin 50 MG CAP PO SCH (20:29)
[2024-05-15] MEDS: Atorvastatin Calcium 40 MG TAB PO SCH (20:29)
[2024-05-15] MEDS: Methocarbamol 500 MG TAB PO SCH (20:29)
[2024-05-15] MEDS: Melatonin 3 MG TAB PO SCH (20:29)
[2024-05-16 04:37] LABS: #Basophils 0.05 10x3/uL (0.0-0.2); %Basophils 0.6 % (0.0-1.0); %Eosinophils 2.8 % (0.0-10.0); %Lymphocytes 24.6 % (21.0-51.0); %Monocytes 8.2 % (0.0-10.0); %Neutrophils 63.4 % (42.0-75.0); Hematocrit 37.1 % (36.0-47.0); Hemoglobin 11.8 g/dL (12.0-16.0); Mean Corpuscular HGB CONC 31.8 g/dL (32.0-36.0); Mean Corpuscular Hemoglobin 31.3 pg (27.0-31.0); Mean Corpuscular Volume 98.4 fL (78.0-98.0); Platelet Count 236 10x3/uL (130-400); RBC Distribution Width 14.4 % (11.5-14.5); Red Blood Cell (RBC) Count 3.77 mill/uL (4.20-5.40)
[2024-05-16 04:49] LABS: Anion Gap 10 mmol/L (10-20); BUN (Urea Nitrogen) 13 mg/dL (9.8-20.1); Calc. Creatinine Clearance 60 mL/min (70-130); Carbon Dioxide 33 mmol/L (23-31); Chloride 103 mmol/L (98-107); Estimated GFR 88; Glucose 149 mg/dL (83-110); Magnesium 1.8 mg/dL (1.6-2.6); Potassium 3.4 mmol/L (3.5-5.1); Sodium 143 mmol/L (136-145)
[2024-05-16] MEDS: Furosemide 20 MG (2 mL) VIAL SLOW IVP SCH (05:53)
[2024-05-16] MEDS: Levothyroxine Sodium 25 MCG TAB PO SCH (05:53)
[2024-05-16] MEDS ORDERED: Cetirizine HCl 10 MG TAB PO SCH (09:00)
[2024-05-16] MEDS ORDERED: sitaGLIPtin Phosphate 25 MG TAB PO SCH (09:00)
[2024-05-16] MEDS: Alogliptin 25 MG TAB PO SCH (10:42)
[2024-05-16] MEDS: Enoxaparin 30 MG (0.3 mL) SYRINGE SC SCH (10:43)
[2024-05-16] MEDS: Sertraline 100 MG TAB PO SCH (10:43)
[2024-05-16] MEDS: Aspirin 81 mg Enteric Coated Tablet PO SCH (10:44)
[2024-05-16] MEDS: Loratadine 10 MG TAB PO SCH (10:44)
[2024-05-16] MEDS: Calcium Carbonate 600 MG + Vit D TAB PO SCH (10:44)
[2024-05-16] MEDS: Potassium Chloride 20 MEQ TAB PO SCH ×2 (10:44)
[2024-05-16] MEDS: Bupropion 150 MG SR.TAB PO SCH (10:44)
[2024-05-16] MEDS: Magnesium 2 GM/50 ML(in water) 2 GM in Premix 1 BAG IVPB SCH (10:45)
[2024-05-16] MEDS: Ezetimibe 10 MG TAB PO SCH (10:45)
[2024-05-16] MEDS: Pantoprazole DR 40 MG TAB PO SCH (10:46)
[2024-05-16] MEDS: Ondansetron PF 4 MG/2 ML Vial IVP PRN (12:12)
[2024-05-16] MEDS: cefTRIAXone\\ROCEPHIN 1 GM in Sodium Chloride 0.9% 100 ML IVPB SCH (12:12)
[2024-05-16] MEDS: Azithromycin 500 MG in Sodium Chloride 0.9% 250 ML 250 ML IVPB SCH (12:51)
[2024-05-16 13:24] LABS: ALT (SGPT) 17 U/L (8-55); AST (SGOT) 22 U/L (5-34); Albumin 2.6 g/dL (3.4-4.8); Alkaline Phosphatase 101 U/L (40-110); Bilirubin, Direct 0.3 mg/dL (0.1-0.3); Bilirubin, Total 0.5 mg/dL (0.2-1.2); Lipase 9 U/L (8-78); Protein, Total 4.5 g/dL (5.8-8.1)
[2024-05-17] MEDS: cefTRIAXone\\ROCEPHIN 1 GM in Sodium Chloride 0.9% 100 ML IVPB SCH (11:47)
[2024-05-17 12:16] VITALS: BMI 18.4
[2024-05-17 15:16] LABS: #Basophils 0.06 10x3/uL (0.0-0.2); %Basophils 0.6 % (0.0-1.0); %Eosinophils 2.4 % (0.0-10.0); %Lymphocytes 17.1 % (21.0-51.0); %Monocytes 6.1 % (0.0-10.0); %Neutrophils 73.5 % (42.0-75.0); Hematocrit 37.6 % (36.0-47.0); Hemoglobin 11.9 g/dL (12.0-16.0); Mean Corpuscular HGB CONC 31.6 g/dL (32.0-36.0); Mean Corpuscular Hemoglobin 31.5 pg (27.0-31.0); Mean Corpuscular Volume 99.5 fL (78.0-98.0); Mean Platelet Volume 9.8 fL (7.4-10.4); Platelet Count 217 10x3/uL (130-400); RBC Distribution Width 14.2 % (11.5-14.5); Red Blood Cell (RBC) Count 3.78 mill/uL (4.20-5.40)
[2024-05-17 15:32] LABS: ALT (SGPT) 34 U/L (8-55); AST (SGOT) 53 U/L (5-34); Albumin 2.8 g/dL (3.4-4.8); Alkaline Phosphatase 97 U/L (40-110); Anion Gap 10 mmol/L (10-20); BUN (Urea Nitrogen) 11 mg/dL (9.8-20.1); Bilirubin, Total 0.4 mg/dL (0.2-1.2); Calc. Creatinine Clearance 51 mL/min (70-130); Calcium 8.5 mg/dL (7.8-10.44); Carbon Dioxide 32 mmol/L (23-31); Chloride 100 mmol/L (98-107); Estimated GFR 82; Globulin 2.1 g/dL (2.4-3.5); Glucose 238 mg/dL (83-110); Magnesium 1.8 mg/dL (1.6-2.6); Protein, Total 4.9 g/dL (5.8-8.1); Sodium 137 mmol/L (136-145)
[2024-05-17] MEDS: Magnesium 2 GM/50 ML(in water) 2 GM in Premix 1 BAG IVPB SCH (16:25)
[2024-05-17] MEDS: Hydrocortisone 1% Cream 30 GM TUBE TOP SCH (20:32)
[2024-05-18 06:22] LABS: #Basophils 0.05 10x3/uL (0.0-0.2); %Basophils 0.6 % (0.0-1.0); %Eosinophils 3.3 % (0.0-10.0); %Lymphocytes 19.4 % (21.0-51.0); %Monocytes 8.4 % (0.0-10.0); %Neutrophils 67.9 % (42.0-75.0); Hematocrit 35.5 % (36.0-47.0); Hemoglobin 11.3 g/dL (12.0-16.0); Mean Corpuscular HGB CONC 31.8 g/dL (32.0-36.0); Mean Corpuscular Hemoglobin 31.7 pg (27.0-31.0); Mean Corpuscular Volume 99.4 fL (78.0-98.0); Platelet Count 214 10x3/uL (130-400); RBC Distribution Width 14.1 % (11.5-14.5); Red Blood Cell (RBC) Count 3.57 mill/uL (4.20-5.40)
[2024-05-18 06:39] LABS: ALT (SGPT) 40 U/L (8-55); AST (SGOT) 66 U/L (5-34); Albumin 2.6 g/dL (3.4-4.8); Alkaline Phosphatase 86 U/L (40-110); Anion Gap 8 mmol/L (10-20); BUN (Urea Nitrogen) 9 mg/dL (9.8-20.1); Bilirubin, Total 0.4 mg/dL (0.2-1.2); Calc. Creatinine Clearance 63 mL/min (70-130); Calcium 8.3 mg/dL (7.8-10.44); Carbon Dioxide 37 mmol/L (23-31); Chloride 101 mmol/L (98-107); Estimated GFR 89; Glucose 155 mg/dL (83-110); Magnesium 2.1 mg/dL (1.6-2.6); Potassium 4.3 mmol/L (3.5-5.1); Protein, Total 4.6 g/dL (5.8-8.1); Sodium 142 mmol/L (136-145)
[2024-05-18] MEDS: Enoxaparin 40 MG (0.4 mL) SYRINGE SC SCH (10:46)
[2024-05-18] MEDS: Cefdinir 300 MG CAP PO SCH (10:50)
[2024-05-18 11:29] LABS: EliA Celiac New Method **** NEW METHOD ****; Gliadin IgA Ab, Deamidated 1.1 EliAU/mL (<7 Negative); Gliadin IgG Ab, Deamidated Less than 0.6 EliAU/mL (<7 Negative); t-Transglutaminase (tTG) IgA 0.4 EliAU/mL (<7 Negative); t-Transglutaminase (tTG) IgG 0.7 EliAU/mL (<7 Negative)
[2024-05-18] MEDS: Furosemide 20 MG (2 mL) VIAL SLOW IVP SCH (15:50)
[2024-05-18] MEDS: metFORMIN 500 MG TAB PO SCH (18:13)
[2024-05-19 05:05] LABS: ALT (SGPT) 52 U/L (8-55); AST (SGOT) 71 U/L (5-34); Albumin 2.8 g/dL (3.4-4.8); Alkaline Phosphatase 86 U/L (40-110); Anion Gap 9 mmol/L (10-20); BUN (Urea Nitrogen) 11 mg/dL (9.8-20.1); Bilirubin, Total 0.5 mg/dL (0.2-1.2); Calc. Creatinine Clearance 65 mL/min (70-130); Calcium 8.6 mg/dL (7.8-10.44); Carbon Dioxide 38 mmol/L (23-31); Cardiac Risk 2.7 (Less than 4.5); Chloride 99 mmol/L (98-107); Cholesterol 93 mg/dl (< 200 Desired); Estimated GFR 90; Globulin 2.2 g/dL (2.4-3.5); Glucose 143 mg/dL (83-110); HDL Cholesterol 34 mg/dL (>60 Neg Risk); LDL Cholesterol, Calculated 46 mg/dL; Potassium 4.3 mmol/L (3.5-5.1); Sodium 142 mmol/L (136-145); Triglycerides 66 mg/dL (Less than 150)
[2024-05-19] MEDS: Magnesium 2 GM/50 ML(in water) 2 GM in Premix 1 BAG IVPB SCH (07:59)
[2024-05-19] MEDS: Furosemide 40 MG TAB PO SCH (08:01)
[2024-05-19 08:59] LABS: Actual Bicarbonate (HCO3v) 38.1 mEq/L (22-28); Base Excess 10.8 mEq/L (-2.0 to +3.0); Calcium, Ionized (venous) 1.11 mmol/L (1.16-1.32); Chloride (VBG) 95 mmol/L (98-106); Hematocrit-VBG 39 % (36.0-47.0); Hemoglobin (Hb) 13.3 g/dL (11.7-16.1); Potassium (VBG) 4.12 mmol/L (3.70-5.30); Sodium 142 mmol/L (133-146); pH (venous) 7.399 (7.32-7.43)
[2024-05-19] MEDS: Furosemide 20 MG (2 mL) VIAL SLOW IVP SCH (13:09)
[2024-05-20 07:05] LABS: ALT (SGPT) 51 U/L (8-55); AST (SGOT) 54 U/L (5-34); Albumin 2.8 g/dL (3.4-4.8); Alkaline Phosphatase 93 U/L (40-110); Anion Gap 10 mmol/L (10-20); BUN (Urea Nitrogen) 12 mg/dL (9.8-20.1); Bilirubin, Total 0.6 mg/dL (0.2-1.2); Calc. Creatinine Clearance 56 mL/min (70-130); Calcium 8.5 mg/dL (7.8-10.44); Carbon Dioxide 38 mmol/L (23-31); Chloride 95 mmol/L (98-107); Estimated GFR 88; Globulin 2.3 g/dL (2.4-3.5); Glucose 147 mg/dL (83-110); Potassium 3.7 mmol/L (3.5-5.1); Protein, Total 5.1 g/dL (5.8-8.1); Sodium 139 mmol/L (136-145)
[2024-05-20] MEDS: Magnesium 2 GM/50 ML(in water) 2 GM in Premix 1 BAG IVPB SCH (09:21)
[2024-05-20] MEDS: Furosemide 20 MG (2 mL) VIAL SLOW IVP SCH (16:25)
[2024-05-20] MEDS: Midodrine HCl 5 MG TAB PO SCH (21:09)
[2024-05-21 06:38] LABS: ALT (SGPT) 45 U/L (8-55); AST (SGOT) 43 U/L (5-34); Albumin 2.9 g/dL (3.4-4.8); Alkaline Phosphatase 89 U/L (40-110); Anion Gap 9 mmol/L (10-20); BUN (Urea Nitrogen) 11 mg/dL (9.8-20.1); Bilirubin, Total 0.6 mg/dL (0.2-1.2); Calc. Creatinine Clearance 55 mL/min (70-130); Calcium 8.4 mg/dL (7.8-10.44); Carbon Dioxide 36 mmol/L (23-31); Chloride 95 mmol/L (98-107); Estimated GFR 88; Globulin 2.3 g/dL (2.4-3.5); Glucose 116 mg/dL (83-110); Potassium 3.2 mmol/L (3.5-5.1); Protein, Total 5.2 g/dL (5.8-8.1); Sodium 137 mmol/L (136-145)
[2024-05-21] MEDS: Acetaminophen 325 MG TAB PO PRN (08:51)
[2024-05-21] MEDS: Potassium Chloride 20 MEQ TAB PO SCH (08:55)
[2024-05-21] MEDS: Magnesium 2 GM/50 ML(in water) 2 GM in Premix 1 BAG IVPB SCH (09:00)
[2024-05-21] MEDS: FLU (Fluad Triv) TS24-25 (65UP)/MF59C/PF 45 MCG/0.5 ML Syringe IM ONE (13:55)
[2024-05-21 19:31] VITALS: BP 94/57; TEMP 98.1
== END 2024-05-21 22:15 | disposition home or self-care (01) | DRG 871 ==
LOC: ERS 07:20 → 2SE 10:40
PROVIDERS: ADMIT Family Medicine; ATTEND Internal Medicine
DX: A41.9 Sepsis, unspecified organism (principal); I50.43 Acute on chronic combined systolic (congestive) and diastolic (congestive) heart failure; J18.9 Pneumonia, unspecified organism; J96.01 Acute respiratory failure with hypoxia; I47.20 Ventricular tachycardia, unspecified; E44.0 Moderate protein-calorie malnutrition; Z68.1 Body mass index [BMI] 19.9 or less, adult; E87.29 Other acidosis; I35.0 Nonrheumatic aortic (valve) stenosis; Z66 Do not resuscitate; E78.5 Hyperlipidemia, unspecified; M19.90 Unspecified osteoarthritis, unspecified site; Z96.612 Presence of left artificial shoulder joint; K21.9 Gastro-esophageal reflux disease without esophagitis; I11.0 Hypertensive heart disease with heart failure; K59.00 Constipation, unspecified; F32.A Depression, unspecified; E03.9 Hypothyroidism, unspecified; M81.0 Age-related osteoporosis without current pathological fracture; K52.9 Noninfective gastroenteritis and colitis, unspecified; E87.6 Hypokalemia; G89.29 Other chronic pain; L30.9 Dermatitis, unspecified; R13.10 Dysphagia, unspecified; E11.40 Type 2 diabetes mellitus with diabetic neuropathy, unspecified; Z98.84 Bariatric surgery status; Z90.49 Acquired absence of other specified parts of digestive tract; Z88.5 Allergy status to narcotic agent; Z79.84 Long term (current) use of oral hypoglycemic drugs; Z79.899 Other long term (current) drug therapy; Z79.890 Hormone replacement therapy; Z79.82 Long term (current) use of aspirin
CPT/HCPCS: 36415; 36416; 71045; 74230; 80048; 80053; 80061; 80076; 82805; 83516; 83605; 83690; 83735; 83880; 84443; 84484; 85025; 87040; 90653; 93005; 93306; 93798; 96365; 96367; J0456; J0696; J1650; J1815; J1940; J2405; J3475; J7050

== ENCOUNTER 2025-03-23 19:30 | Inpatient (IN) | payer MEDICARE, BC ==
[2025-03-23] MEDS ORDERED: Ondansetron PF 4 MG/2 ML Vial ONE (20:18)
[2025-03-23 20:37] LABS: #Basophils 0.06 10x3/uL (0.0-0.2); #Eosinophils 0.18 10x3/uL (0.0-0.7); #Monocytes 0.60 10x3/uL (0.11-0.59); #Neutrophils 7.66 10x3/uL (1.40-6.50); %Basophils 0.6 % (0.0-1.0); %Eosinophils 1.8 % (0.0-10.0); %Lymphocytes 16.6 % (21.0-51.0); %Monocytes 5.8 % (0.0-10.0); %Neutrophils 74.6 % (42.0-75.0); Hematocrit 36.0 % (36.0-47.0); Hemoglobin 11.8 g/dL (12.0-16.0); Mean Corpuscular Hemoglobin 31.3 pg (27.0-31.0); Mean Corpuscular Volume 95.5 fL (78.0-98.0); Platelet Count 281 10x3/uL (130-400); Red Blood Cell (RBC) Count 3.77 mill/uL (4.20-5.40); White Blood Cell (WBC) Count 10.26 10x3/uL (4.8-10.8)
[2025-03-23 20:53] LABS: ALT (SGPT) 22 U/L (Less than 34); AST (SGOT) 30 U/L (11-34); Albumin 3.5 g/dL (3.1-4.5); Alkaline Phosphatase 140 U/L (40-110); Anion Gap 14 mmol/L (10-20); BUN (Urea Nitrogen) 26 mg/dL (9.8-20.1); Bilirubin, Total 0.7 mg/dL (0.3-1.2); Calc. Creatinine Clearance 0 mL/min (70-130); Calcium 8.4 mg/dL (7.8-10.44); Carbon Dioxide 29 mmol/L (23-31); Chloride 100 mmol/L (98-107); Globulin 3.0 g/dL (2.4-3.5); Glucose 252 mg/dL (83-110); Potassium 3.3 mmol/L (3.5-5.1); Sodium 140 mmol/L (136-145)
[2025-03-23 20:57] LABS: INR-International Normal Ratio 1.1; PTT 31.1 sec (22.9-36.1); Prothrombin Time 14.5 sec (12.0-14.7)
[2025-03-23] MEDS ORDERED: Ketorolac Tromethamine 30 MG (1 mL) VIAL ONE (21:29)
[2025-03-23] MEDS ORDERED: Ondansetron PF 4 MG/2 ML Vial IVP PRN (21:30)
[2025-03-23] MEDS ORDERED: Dextrose 50% Abboject 50 ML SYRINGE SLOW IVP PRN (21:30)
[2025-03-23] MEDS ORDERED: Glucagon 1 MG/ML KIT IM PRN (21:30)
[2025-03-23] MEDS ORDERED: hydrALAZINE 20 MG/ML VIAL SLOW IVP PRN (21:30)
[2025-03-23] MEDS: D5 1/2 NS w/20 mEq KCL 1,000 ML IV SCH (23:44)
[2025-03-23] MEDS: HYDROcodone/Acetaminophen 7.5/325 mg Tablet PO PRN (23:52)
[2025-03-23 23:55] VITALS: BMI 16.7
[2025-03-24] MEDS: Methocarbamol 500 MG TAB PO PRN (04:06)
[2025-03-24 04:31] LABS: #Basophils 0.06 10x3/uL (0.0-0.2); #Eosinophils 0.10 10x3/uL (0.0-0.7); #Monocytes 0.17 10x3/uL (0.11-0.59); #Neutrophils 8.76 10x3/uL (1.40-6.50); %Basophils 0.6 % (0.0-1.0); %Eosinophils 1.0 % (0.0-10.0); %Lymphocytes 11.7 % (21.0-51.0); %Monocytes 1.6 % (0.0-10.0); %Neutrophils 84.7 % (42.0-75.0); Hematocrit 32.4 % (36.0-47.0); Hemoglobin 10.5 g/dL (12.0-16.0); Mean Corpuscular Hemoglobin 31.4 pg (27.0-31.0); Mean Corpuscular Volume 97.0 fL (78.0-98.0); Platelet Count 241 10x3/uL (130-400); Red Blood Cell (RBC) Count 3.34 mill/uL (4.20-5.40); White Blood Cell (WBC) Count 10.34 10x3/uL (4.8-10.8)
[2025-03-24 04:40] LABS: Anion Gap 11 mmol/L (10-20); BUN (Urea Nitrogen) 29 mg/dL (9.8-20.1); Calc. Creatinine Clearance 36 mL/min (70-130); Calcium 7.7 mg/dL (7.8-10.44); Carbon Dioxide 29 mmol/L (23-31); Chloride 105 mmol/L (98-107); Glucose 151 mg/dL (83-110); Potassium 3.4 mmol/L (3.5-5.1); Sodium 142 mmol/L (136-145)
[2025-03-24] MEDS ORDERED: Rocuronium Bromide 10 MG/ML (10ML VIAL) ONE (09:04)
[2025-03-24] MEDS ORDERED: Lidocaine 1% PF 5 ML VIAL ONE (09:04)
[2025-03-24] MEDS ORDERED: PROPOFOL 20 ML ONE (09:04)
[2025-03-24] MEDS ORDERED: CEFAZOLIN 2 GM VIAL ONE (09:14)
[2025-03-24] MEDS ORDERED: fentaNYL PF 100 MCG/2 ML SYRINGE ONE (09:37)
[2025-03-24] MEDS ORDERED: PHENYLEPHRINE-NS 100 MCG/ML 10 ML SYRINGE ONE ×2 (09:40→10:25)
[2025-03-24] MEDS ORDERED: Ondansetron PF 4 MG/2 ML Vial ONE (10:11)
[2025-03-24] MEDS ORDERED: SUGAMMADEX SODIUM 200 MG/2 ML VIAL ONE (10:34)
[2025-03-24] MEDS: Potassium Chloride 20 MEQ in Premix 1 BAG IVPB SCH ×2 (14:36→15:00)
[2025-03-24] MEDS: Pregabalin 50 MG CAP PO SCH (14:36)
[2025-03-24] MEDS: Pantoprazole 40 MG DR.TAB PO SCH (14:37)
[2025-03-24] MEDS: Bupropion 150 MG SR.TAB PO SCH (14:37)
[2025-03-24] MEDS: PNEUMOC 20-VAL CONJ-DIP CRM/PF 0.5 ML SYRINGE IM ONE (14:53)
[2025-03-24] MEDS: Acetaminophen 325 MG TAB PO PRN (15:08)
[2025-03-24 15:38] LABS: Potassium 3.9 mmol/L (3.5-5.1)
[2025-03-24] MEDS: Sertraline 100 MG TAB PO SCH (21:12)
[2025-03-24] MEDS: Ezetimibe 10 MG TAB PO SCH (21:12)
[2025-03-25 05:38] LABS: Anion Gap 13 mmol/L (10-20); BUN (Urea Nitrogen) 22 mg/dL (9.8-20.1); Calc. Creatinine Clearance 49 mL/min (70-130); Calcium 7.8 mg/dL (7.8-10.44); Carbon Dioxide 23 mmol/L (23-31); Chloride 111 mmol/L (98-107); Glucose 195 mg/dL (83-110); Potassium 4.3 mmol/L (3.5-5.1); Sodium 143 mmol/L (136-145)
[2025-03-25 05:47] LABS: #Basophils 0.03 10x3/uL (0.0-0.2); #Eosinophils Less than 0.03 10x3/uL (0.0-0.7); #Monocytes 0.84 10x3/uL (0.11-0.59); #Neutrophils 11.38 10x3/uL (1.40-6.50); %Basophils 0.2 % (0.0-1.0); %Eosinophils 0.0 % (0.0-10.0); %Lymphocytes 8.4 % (21.0-51.0); %Monocytes 6.2 % (0.0-10.0); %Neutrophils 84.7 % (42.0-75.0); Hematocrit 29.9 % (36.0-47.0); Hemoglobin 9.6 g/dL (12.0-16.0); Mean Corpuscular Hemoglobin 31.8 pg (27.0-31.0); Mean Corpuscular Volume 99.0 fL (78.0-98.0); Platelet Count 185 10x3/uL (130-400); Red Blood Cell (RBC) Count 3.02 mill/uL (4.20-5.40); White Blood Cell (WBC) Count 13.45 10x3/uL (4.8-10.8)
[2025-03-25] MEDS: Furosemide 40 MG TAB PO SCH (08:30)
[2025-03-25] MEDS: Enoxaparin 40 MG (0.4 mL) SYRINGE SC SCH (08:32)
[2025-03-25 10:39] VITALS: BMI 16.7
[2025-03-26 04:50] LABS: #Basophils 0.03 10x3/uL (0.0-0.2); #Eosinophils 0.07 10x3/uL (0.0-0.7); #Monocytes 1.26 10x3/uL (0.11-0.59); #Neutrophils 10.92 10x3/uL (1.40-6.50); %Basophils 0.2 % (0.0-1.0); %Eosinophils 0.5 % (0.0-10.0); %Lymphocytes 10.5 % (21.0-51.0); %Monocytes 9.1 % (0.0-10.0); %Neutrophils 79.3 % (42.0-75.0); Hematocrit 28.9 % (36.0-47.0); Hemoglobin 9.0 g/dL (12.0-16.0); Mean Corpuscular Hemoglobin 30.8 pg (27.0-31.0); Mean Corpuscular Volume 99.0 fL (78.0-98.0); Platelet Count 170 10x3/uL (130-400); Red Blood Cell (RBC) Count 2.92 mill/uL (4.20-5.40); White Blood Cell (WBC) Count 13.79 10x3/uL (4.8-10.8)
[2025-03-26 05:19] LABS: Anion Gap 13 mmol/L (10-20); BUN (Urea Nitrogen) 16 mg/dL (9.8-20.1); Calc. Creatinine Clearance 58 mL/min (70-130); Calcium 7.8 mg/dL (7.8-10.44); Carbon Dioxide 26 mmol/L (23-31); Chloride 108 mmol/L (98-107); Glucose 198 mg/dL (83-110); Potassium 3.8 mmol/L (3.5-5.1); Sodium 143 mmol/L (136-145)
[2025-03-26] MEDS: Ketorolac Tromethamine 30 MG (1 mL) VIAL IVP SCH (10:26)
[2025-03-28] MEDS: Senokot S 8.6-50 MG TAB PO SCH (10:00)
[2025-03-28 11:58] LABS: #Basophils 0.04 10x3/uL (0.0-0.2); #Eosinophils Less than 0.03 10x3/uL (0.0-0.7); #Monocytes 1.06 10x3/uL (0.11-0.59); #Neutrophils 20.73 10x3/uL (1.40-6.50); %Basophils 0.2 % (0.0-1.0); %Eosinophils 0.0 % (0.0-10.0); %Lymphocytes 4.2 % (21.0-51.0); %Monocytes 4.6 % (0.0-10.0); %Neutrophils 90.6 % (42.0-75.0); Hematocrit 33.3 % (36.0-47.0); Hemoglobin 10.9 g/dL (12.0-16.0); Mean Corpuscular Hemoglobin 31.1 pg (27.0-31.0); Mean Corpuscular Volume 94.9 fL (78.0-98.0); Platelet Count 280 10x3/uL (130-400); Red Blood Cell (RBC) Count 3.51 mill/uL (4.20-5.40); White Blood Cell (WBC) Count 22.88 10x3/uL (4.8-10.8)
[2025-03-28 12:40] LABS: Bacteria/HPF None Seen HPF (None Seen); CAUTI Indications for Culture Fever or rigors; Glucose, Urine (Dipstick) Normal (Negative); Leukocyte Negative Leu/uL (Negative); Protein, Urine (Dipstick) Negative (Neg-Trace); RBC/HPF 0-3 HPF (0-3); Specific Gravity, Urine 1.012 (1.002-1.036); WBC/HPF 0-3 HPF (0-3)
[2025-03-28 12:42] LABS: ALT (SGPT) 27 U/L (Less than 34); AST (SGOT) 53 U/L (11-34); Albumin 2.5 g/dL (3.1-4.5); Alkaline Phosphatase 78 U/L (40-110); Anion Gap 19 mmol/L (10-20); BUN (Urea Nitrogen) 21 mg/dL (9.8-20.1); Bilirubin, Total 1.0 mg/dL (0.3-1.2); Calc. Creatinine Clearance 46 mL/min (70-130); Calcium 7.3 mg/dL (7.8-10.44); Carbon Dioxide 25 mmol/L (23-31); Chloride 105 mmol/L (98-107); Globulin 3.0 g/dL (2.4-3.5); Glucose 298 mg/dL (83-110); Potassium 3.6 mmol/L (3.5-5.1); Sodium 145 mmol/L (136-145)
[2025-03-28 12:56] LABS: Urine Culture Reflex No No
[2025-03-29] MEDS: Vancomycin 1.25 GM / NS 250 ML VIAL-2-BAG IVPB SCH (08:46)
[2025-03-29] MEDS ORDERED: Vancomycin 1 GM in Premix 1 BAG IVPB SCH (09:00)
[2025-03-29] MEDS: Methocarbamol 500 MG TAB PO SCH (13:35)
[2025-03-29 14:27] LABS: #Basophils Less than 0.03 10x3/uL (0.0-0.2); #Eosinophils Less than 0.03 10x3/uL (0.0-0.7); #Monocytes 0.79 10x3/uL (0.11-0.59); #Neutrophils 14.37 10x3/uL (1.40-6.50); %Basophils 0.1 % (0.0-1.0); %Eosinophils 0.0 % (0.0-10.0); %Lymphocytes 6.2 % (21.0-51.0); %Monocytes 4.9 % (0.0-10.0); %Neutrophils 88.3 % (42.0-75.0); Hematocrit 29.5 % (36.0-47.0); Hemoglobin 9.2 g/dL (12.0-16.0); Mean Corpuscular Hemoglobin 30.4 pg (27.0-31.0); Mean Corpuscular Volume 97.4 fL (78.0-98.0); Platelet Count 260 10x3/uL (130-400); Red Blood Cell (RBC) Count 3.03 mill/uL (4.20-5.40); White Blood Cell (WBC) Count 16.27 10x3/uL (4.8-10.8)
[2025-03-29 14:45] LABS: Anion Gap 15 mmol/L (10-20); BUN (Urea Nitrogen) 18 mg/dL (9.8-20.1); Calc. Creatinine Clearance 52 mL/min (70-130); Calcium 6.8 mg/dL (7.8-10.44); Carbon Dioxide 29 mmol/L (23-31); Chloride 107 mmol/L (98-107); Glucose 201 mg/dL (83-110); Potassium 2.7 mmol/L (3.5-5.1); Sodium 148 mmol/L (136-145)
[2025-03-29] MEDS: CALCIUM GLUC 1 GM/NS 50 ML 1 GM in Premix 1 BAG IVPB SCH (15:55)
[2025-03-30 06:39] LABS: #Basophils 0.05 10x3/uL (0.0-0.2); #Eosinophils 0.13 10x3/uL (0.0-0.7); #Monocytes 0.66 10x3/uL (0.11-0.59); #Neutrophils 12.70 10x3/uL (1.40-6.50); %Basophils 0.3 % (0.0-1.0); %Eosinophils 0.8 % (0.0-10.0); %Lymphocytes 12.0 % (21.0-51.0); %Monocytes 4.2 % (0.0-10.0); %Neutrophils 81.9 % (42.0-75.0); Hematocrit 30.7 % (36.0-47.0); Hemoglobin 9.9 g/dL (12.0-16.0); Mean Corpuscular Hemoglobin 31.1 pg (27.0-31.0); Mean Corpuscular Volume 96.5 fL (78.0-98.0); Platelet Count 198 10x3/uL (130-400); Red Blood Cell (RBC) Count 3.18 mill/uL (4.20-5.40); White Blood Cell (WBC) Count 15.53 10x3/uL (4.8-10.8)
[2025-03-30 07:04] LABS: Anion Gap 14 mmol/L (10-20); BUN (Urea Nitrogen) 12 mg/dL (9.8-20.1); Calc. Creatinine Clearance 52 mL/min (70-130); Calcium 6.9 mg/dL (7.8-10.44); Carbon Dioxide 24 mmol/L (23-31); Chloride 110 mmol/L (98-107); Glucose 114 mg/dL (83-110); Potassium 4.0 mmol/L (3.5-5.1); Sodium 144 mmol/L (136-145)
[2025-03-30 07:27] LABS: Vancomycin, Random 20.7 ug/mL (See Comment)
[2025-03-30 07:46] LABS: Platelet Adequacy Comment Platelets Normal; RBC Morphology Within Normal Limits
[2025-03-30] MEDS: CALCIUM GLUC 1 GM/NS 50 ML 1 GM in Premix 1 BAG IVPB SCH (08:44)
[2025-03-30] MEDS: LevoFLOXacin 750 mg/D5W 750 MG in Premix 1 BAG IVPB SCH (10:49)
[2025-03-31 06:04] LABS: #Basophils 0.03 10x3/uL (0.0-0.2); #Eosinophils 0.30 10x3/uL (0.0-0.7); #Monocytes 0.58 10x3/uL (0.11-0.59); #Neutrophils 9.60 10x3/uL (1.40-6.50); %Basophils 0.3 % (0.0-1.0); %Eosinophils 2.6 % (0.0-10.0); %Lymphocytes 8.7 % (21.0-51.0); %Monocytes 5.0 % (0.0-10.0); %Neutrophils 82.9 % (42.0-75.0); Hematocrit 29.9 % (36.0-47.0); Hemoglobin 9.4 g/dL (12.0-16.0); Mean Corpuscular Hemoglobin 30.8 pg (27.0-31.0); Mean Corpuscular Volume 98.0 fL (78.0-98.0); Platelet Count 295 10x3/uL (130-400); Red Blood Cell (RBC) Count 3.05 mill/uL (4.20-5.40); White Blood Cell (WBC) Count 11.58 10x3/uL (4.8-10.8)
[2025-03-31 06:20] LABS: Anion Gap 13 mmol/L (10-20); BUN (Urea Nitrogen) 10 mg/dL (9.8-20.1); Calc. Creatinine Clearance 54 mL/min (70-130); Calcium 7.2 mg/dL (7.8-10.44); Carbon Dioxide 31 mmol/L (23-31); Chloride 103 mmol/L (98-107); Glucose 102 mg/dL (83-110); Potassium 3.6 mmol/L (3.5-5.1); Sodium 143 mmol/L (136-145)
[2025-03-31 15:48] VITALS: BP 104/59; TEMP 98.1
== END 2025-03-31 16:45 | DRG 521 ==
LOC: ERS 19:30 → SURG A 21:34
PROVIDERS: ADMIT Surgery; ATTEND Surgery
PROC: 3E03329 Introduction of Other Anti-infective into Peripheral Vein, Percutaneous Approach (ICD-10-PCS; 2025-03-23)
PROC: 0SRS0J9 Replacement of Left Hip Joint, Femoral Surface with Synthetic Substitute, Cemented, Open Approach (ICD-10-PCS; principal; 2025-03-24)
PROC: 3E0234Z Introduction of Serum, Toxoid and Vaccine into Muscle, Percutaneous Approach (ICD-10-PCS; 2025-03-24)
PROC: 3E033XZ Introduction of Vasopressor into Peripheral Vein, Percutaneous Approach (ICD-10-PCS; 2025-03-24)
DX: S72.012A Unspecified intracapsular fracture of left femur, initial encounter for closed fracture (principal); A41.9 Sepsis, unspecified organism; G93.41 Metabolic encephalopathy; S22.42XA Multiple fractures of ribs, left side, initial encounter for closed fracture; N17.9 Acute kidney failure, unspecified; I50.22 Chronic systolic (congestive) heart failure; I13.0 Hypertensive heart and chronic kidney disease with heart failure and stage 1 through stage 4 chronic kidney disease, or unspecified chronic kidney disease; G56.00 Carpal tunnel syndrome, unspecified upper limb; M19.90 Unspecified osteoarthritis, unspecified site; E78.5 Hyperlipidemia, unspecified; K21.9 Gastro-esophageal reflux disease without esophagitis; E11.40 Type 2 diabetes mellitus with diabetic neuropathy, unspecified; E11.22 Type 2 diabetes mellitus with diabetic chronic kidney disease; N18.9 Chronic kidney disease, unspecified; D63.1 Anemia in chronic kidney disease; Z96.612 Presence of left artificial shoulder joint; E03.9 Hypothyroidism, unspecified; Z23 Encounter for immunization; Z96.641 Presence of right artificial hip joint; Z98.890 Other specified postprocedural states; Z98.84 Bariatric surgery status; Z79.899 Other long term (current) drug therapy; Z79.84 Long term (current) use of oral hypoglycemic drugs; M25.512 Pain in left shoulder; Z88.5 Allergy status to narcotic agent; Z79.82 Long term (current) use of aspirin; E87.6 Hypokalemia; M81.0 Age-related osteoporosis without current pathological fracture; K59.09 Other constipation; D64.89 Other specified anemias; W19.XXXA Unspecified fall, initial encounter
CPT/HCPCS: 36415; 36416; 70450; 71045; 72170; 80048; 80053; 80202; 81001; 83605; 84443; 85025; 85610; 85730; 87040; 87149; 93005; 94640; 96374; 96375; 96376; C1713; C1776; G0390; J0613; J1100; J1650; J1815; J1885; J1956; J2060; J2270; J2405; J2543; J2704; J3010; J3373; J3480; J7030; J7050; J7620

== ENCOUNTER 2025-04-28 17:55 | Inpatient (IN) | payer MEDICARE, BC ==
[~2025-04-28 17:55] MED LIST: Iopamidol-370 76% 500 ML MDV (1 ML CHARGE) ONE
[2025-04-28 18:24] LABS: #Basophils 0.04 10x3/uL (0.0-0.2); #Eosinophils 0.03 10x3/uL (0.0-0.7); #Monocytes 1.05 10x3/uL (0.11-0.59); #Neutrophils 11.18 10x3/uL (1.40-6.50); %Basophils 0.3 % (0.0-1.0); %Eosinophils 0.2 % (0.0-10.0); %Lymphocytes 8.0 % (21.0-51.0); %Monocytes 7.8 % (0.0-10.0); %Neutrophils 83.2 % (42.0-75.0); Hematocrit 32.0 % (36.0-47.0); Hemoglobin 10.8 g/dL (12.0-16.0); Mean Corpuscular Hemoglobin 29.5 pg (27.0-31.0); Mean Corpuscular Volume 87.4 fL (78.0-98.0); Platelet Count 483 10x3/uL (130-400); Red Blood Cell (RBC) Count 3.66 mill/uL (4.20-5.40); White Blood Cell (WBC) Count 13.45 10x3/uL (4.8-10.8)
[2025-04-28 18:42] LABS: ALT (SGPT) 10 U/L (Less than 34); AST (SGOT) 28 U/L (11-34); Albumin 1.8 g/dL (3.1-4.5); Alkaline Phosphatase 121 U/L (40-110); Anion Gap 12 mmol/L (10-20); BUN (Urea Nitrogen) 8 mg/dL (9.8-20.1); Bilirubin, Total 0.6 mg/dL (0.3-1.2); Calc. Creatinine Clearance 0 mL/min (70-130); Calcium 7.3 mg/dL (7.8-10.44); Carbon Dioxide 36 mmol/L (23-31); Chloride 89 mmol/L (98-107); Globulin 3.7 g/dL (2.4-3.5); Glucose 113 mg/dL (83-110); Lipase 17 U/L (8-78); Magnesium 1.4 mg/dL (1.6-2.6); Potassium 2.9 mmol/L (3.5-5.1); Sodium 134 mmol/L (136-145)
[2025-04-28] MEDS ORDERED: Magnesium 2 GM/50 ML BAG (IN WATER) ONE (19:15)
[2025-04-28] MEDS ORDERED: Potassium Chloride 20 MEQ (100 mL) BAG ONE (20:46)
[2025-04-28] MEDS ORDERED: Vancomycin 1 GM/200 ML (PREMIX FOIL) BAG ONE (20:46)
[2025-04-28] MEDS ORDERED: Electrolyte Replacement Protocol 1 EACH FS SCH (23:00)
[2025-04-28] MEDS ORDERED: Ondansetron PF 4 MG/2 ML Vial IVP PRN (23:00)
[2025-04-28] MEDS ORDERED: Calcium Carbonate 500 MG ChewTAB PO PRN (23:00)
[2025-04-28] MEDS ORDERED: Glucagon 1 MG/ML KIT IM PRN (23:16)
[2025-04-28] MEDS ORDERED: Dextrose 50% Abboject 50 ML SYRINGE SLOW IVP PRN (23:16)
[2025-04-29] MEDS: Magnesium 2 GM/50 ML(in water) 2 GM in Premix 1 BAG IVPB SCH (01:59)
[2025-04-29] MEDS: Albumin 25% 25 GM (100 mL) BOT IVPB SCH (01:59)
[2025-04-29] MEDS: Potassium Chloride 20 MEQ in Premix 1 BAG IVPB SCH ×2 (03:28→03:45)
[2025-04-29 04:44] LABS: #Basophils 0.06 10x3/uL (0.0-0.2); #Eosinophils 0.05 10x3/uL (0.0-0.7); #Monocytes 2.03 10x3/uL (0.11-0.59); #Neutrophils 16.42 10x3/uL (1.40-6.50); %Basophils 0.3 % (0.0-1.0); %Eosinophils 0.3 % (0.0-10.0); %Lymphocytes 6.2 % (21.0-51.0); %Monocytes 10.2 % (0.0-10.0); %Neutrophils 82.1 % (42.0-75.0); Hematocrit 32.2 % (36.0-47.0); Hemoglobin 10.4 g/dL (12.0-16.0); Mean Corpuscular Hemoglobin 29.5 pg (27.0-31.0); Mean Corpuscular Volume 91.2 fL (78.0-98.0); Platelet Count 470 10x3/uL (130-400); Red Blood Cell (RBC) Count 3.53 mill/uL (4.20-5.40); White Blood Cell (WBC) Count 19.98 10x3/uL (4.8-10.8)
[2025-04-29 05:07] LABS: ALT (SGPT) 9 U/L (Less than 34); AST (SGOT) 27 U/L (11-34); Albumin 2.8 g/dL (3.1-4.5); Alkaline Phosphatase 122 U/L (40-110); Anion Gap 18 mmol/L (10-20); BUN (Urea Nitrogen) 6 mg/dL (9.8-20.1); Bilirubin, Total 1.0 mg/dL (0.3-1.2); Calc. Creatinine Clearance 66 mL/min (70-130); Calcium 7.6 mg/dL (7.8-10.44); Carbon Dioxide 27 mmol/L (23-31); Chloride 95 mmol/L (98-107); Globulin 3.3 g/dL (2.4-3.5); Glucose 104 mg/dL (83-110); Potassium 2.9 mmol/L (3.5-5.1); Sodium 137 mmol/L (136-145)
[2025-04-29 09:04] LABS: Magnesium 2.3 mg/dL (1.6-2.6)
[2025-04-29] MEDS: HYDROcodone/Acetaminophen 10/325 mg Tablet PO PRN (12:58)
[2025-04-29] MEDS ORDERED: Dextrose 50% Abboject 50 ML SYRINGE SLOW IVP PRN (15:14)
[2025-04-29] MEDS ORDERED: Glucagon 1 MG/ML KIT IM PRN (15:14)
[2025-04-29 20:40] LABS: Potassium 3.2 mmol/L (3.5-5.1)
[2025-04-29] MEDS: Sertraline 100 MG TAB PO SCH (20:47)
[2025-04-29] MEDS: Mirtazapine 15 MG TAB PO SCH (20:47)
[2025-04-29] MEDS: Ezetimibe 10 MG TAB PO SCH (20:48)
[2025-04-29] MEDS: Famotidine 20 MG TAB PO SCH (20:48)
[2025-04-29] MEDS: HYDROcodone/Acetaminophen 5/325 mg Tablet PO PRN (21:47)
[2025-04-30 02:10] LABS: Potassium 3.6 mmol/L (3.5-5.1)
[2025-04-30 09:51] LABS: #Basophils Less than 0.03 10x3/uL (0.0-0.2); #Eosinophils 0.06 10x3/uL (0.0-0.7); #Monocytes 0.64 10x3/uL (0.11-0.59); #Neutrophils 6.99 10x3/uL (1.40-6.50); %Basophils 0.2 % (0.0-1.0); %Eosinophils 0.7 % (0.0-10.0); %Lymphocytes 10.3 % (21.0-51.0); %Monocytes 7.4 % (0.0-10.0); %Neutrophils 80.7 % (42.0-75.0); Hematocrit 21.0 % (36.0-47.0); Hemoglobin 6.7 g/dL (12.0-16.0); Mean Corpuscular Hemoglobin 28.9 pg (27.0-31.0); Mean Corpuscular Volume 90.5 fL (78.0-98.0); Platelet Count 217 10x3/uL (130-400); Red Blood Cell (RBC) Count 2.32 mill/uL (4.20-5.40); White Blood Cell (WBC) Count 8.66 10x3/uL (4.8-10.8)
[2025-04-30 09:56] LABS: Anion Gap 13 mmol/L (10-20); BUN (Urea Nitrogen) Less than 4 mg/dL (9.8-20.1); Calc. Creatinine Clearance 73 mL/min (70-130); Calcium 7.4 mg/dL (7.8-10.44); Carbon Dioxide 28 mmol/L (23-31); Chloride 103 mmol/L (98-107); Glucose 107 mg/dL (83-110); Potassium 3.8 mmol/L (3.5-5.1); Sodium 140 mmol/L (136-145)
[2025-04-30 10:18] LABS: Hematocrit 28.6 % (36.0-47.0); Hemoglobin 9.0 g/dL (12.0-16.0)
[2025-05-01 04:52] LABS: #Basophils 0.07 10x3/uL (0.0-0.2); #Eosinophils 0.08 10x3/uL (0.0-0.7); #Monocytes 0.96 10x3/uL (0.11-0.59); #Neutrophils 9.03 10x3/uL (1.40-6.50); %Basophils 0.6 % (0.0-1.0); %Eosinophils 0.7 % (0.0-10.0); %Lymphocytes 12.2 % (21.0-51.0); %Monocytes 8.2 % (0.0-10.0); %Neutrophils 77.6 % (42.0-75.0); Hematocrit 30.1 % (36.0-47.0); Hemoglobin 9.6 g/dL (12.0-16.0); Mean Corpuscular Hemoglobin 29.7 pg (27.0-31.0); Mean Corpuscular Volume 93.2 fL (78.0-98.0); Platelet Count 456 10x3/uL (130-400); Red Blood Cell (RBC) Count 3.23 mill/uL (4.20-5.40); White Blood Cell (WBC) Count 11.64 10x3/uL (4.8-10.8)
[2025-05-01 05:11] LABS: Anion Gap 13 mmol/L (10-20); BUN (Urea Nitrogen) 4 mg/dL (9.8-20.1); Calc. Creatinine Clearance 76 mL/min (70-130); Calcium 7.8 mg/dL (7.8-10.44); Carbon Dioxide 24 mmol/L (23-31); Chloride 105 mmol/L (98-107); Glucose 145 mg/dL (83-110); Potassium 3.6 mmol/L (3.5-5.1); Sodium 138 mmol/L (136-145)
[2025-05-01] MEDS: Acetaminophen 325 MG TAB PO PRN (11:34)
[2025-05-01] MEDS: PNEUMOC 20-VAL CONJ-DIP CRM/PF 0.5 ML SYRINGE IM ONE (20:42)
[2025-05-02 04:52] LABS: #Basophils 0.08 10x3/uL (0.0-0.2); #Eosinophils 0.06 10x3/uL (0.0-0.7); #Monocytes 0.78 10x3/uL (0.11-0.59); #Neutrophils 9.41 10x3/uL (1.40-6.50); %Basophils 0.7 % (0.0-1.0); %Eosinophils 0.5 % (0.0-10.0); %Lymphocytes 11.5 % (21.0-51.0); %Monocytes 6.6 % (0.0-10.0); %Neutrophils 80.3 % (42.0-75.0); Hematocrit 30.1 % (36.0-47.0); Hemoglobin 9.5 g/dL (12.0-16.0); Mean Corpuscular Hemoglobin 29.1 pg (27.0-31.0); Mean Corpuscular Volume 92.3 fL (78.0-98.0); Platelet Count 490 10x3/uL (130-400); Red Blood Cell (RBC) Count 3.26 mill/uL (4.20-5.40); White Blood Cell (WBC) Count 11.73 10x3/uL (4.8-10.8)
[2025-05-02 05:03] LABS: Anion Gap 15 mmol/L (10-20); BUN (Urea Nitrogen) 8 mg/dL (9.8-20.1); Calc. Creatinine Clearance 66 mL/min (70-130); Calcium 8.1 mg/dL (7.8-10.44); Carbon Dioxide 26 mmol/L (23-31); Chloride 106 mmol/L (98-107); Glucose 136 mg/dL (83-110); Potassium 3.6 mmol/L (3.5-5.1); Sodium 143 mmol/L (136-145)
[2025-05-02 08:02] VITALS: BMI 17.2
[2025-05-02 16:12] LABS: CAUTI Indications for Culture Dysuria,urgency,freq; Glucose, Urine (Dipstick) Normal (Negative); Leukocyte 25 Leu/uL (Negative); Protein, Urine (Dipstick) 50 mg/dL (Neg-Trace)
[2025-05-02 16:18] LABS: Specific Gravity, Urine Greater than 1.050 (1.002-1.036)
[2025-05-02 16:20] LABS: Bacteria/HPF 1+ HPF (None Seen); Urine Culture Reflex No No
[2025-05-02] MEDS: Heparin 5,000 UNITS/ML VIAL SC SCH (20:10)
[2025-05-03 05:11] LABS: #Basophils 0.07 10x3/uL (0.0-0.2); #Eosinophils 0.08 10x3/uL (0.0-0.7); #Monocytes 1.10 10x3/uL (0.11-0.59); #Neutrophils 13.66 10x3/uL (1.40-6.50); %Basophils 0.4 % (0.0-1.0); %Eosinophils 0.5 % (0.0-10.0); %Lymphocytes 10.6 % (21.0-51.0); %Monocytes 6.6 % (0.0-10.0); %Neutrophils 81.6 % (42.0-75.0); Hematocrit 28.6 % (36.0-47.0); Hemoglobin 9.0 g/dL (12.0-16.0); Mean Corpuscular Hemoglobin 29.2 pg (27.0-31.0); Mean Corpuscular Volume 92.9 fL (78.0-98.0); Platelet Count 459 10x3/uL (130-400); Red Blood Cell (RBC) Count 3.08 mill/uL (4.20-5.40); White Blood Cell (WBC) Count 16.74 10x3/uL (4.8-10.8)
[2025-05-03 05:31] LABS: Anion Gap 15 mmol/L (10-20); BUN (Urea Nitrogen) 10 mg/dL (9.8-20.1); Calc. Creatinine Clearance 71 mL/min (70-130); Calcium 8.1 mg/dL (7.8-10.44); Carbon Dioxide 22 mmol/L (23-31); Chloride 108 mmol/L (98-107); Glucose 180 mg/dL (83-110); Potassium 3.5 mmol/L (3.5-5.1); Sodium 141 mmol/L (136-145)
[2025-05-03] MEDS: Vancomycin 1.25 GM / NS 250 ML VIAL-2-BAG IVPB SCH (23:05)
[2025-05-03] MEDS: Vancomycin 1 GM in Premix 1 BAG IVPB SCH (23:07)
[2025-05-04 05:16] LABS: #Basophils 0.08 10x3/uL (0.0-0.2); #Eosinophils 0.08 10x3/uL (0.0-0.7); #Monocytes 0.77 10x3/uL (0.11-0.59); #Neutrophils 11.02 10x3/uL (1.40-6.50); %Basophils 0.6 % (0.0-1.0); %Eosinophils 0.6 % (0.0-10.0); %Lymphocytes 11.7 % (21.0-51.0); %Monocytes 5.7 % (0.0-10.0); %Neutrophils 80.9 % (42.0-75.0); Hematocrit 31.4 % (36.0-47.0); Hemoglobin 9.6 g/dL (12.0-16.0); Mean Corpuscular Hemoglobin 29.4 pg (27.0-31.0); Mean Corpuscular Volume 96.0 fL (78.0-98.0); Platelet Count 490 10x3/uL (130-400); Red Blood Cell (RBC) Count 3.27 mill/uL (4.20-5.40); White Blood Cell (WBC) Count 13.62 10x3/uL (4.8-10.8)
[2025-05-04 05:45] LABS: Anion Gap 14 mmol/L (10-20); BUN (Urea Nitrogen) 8 mg/dL (9.8-20.1); Calc. Creatinine Clearance 83 mL/min (70-130); Calcium 8.4 mg/dL (7.8-10.44); Carbon Dioxide 20 mmol/L (23-31); Chloride 111 mmol/L (98-107); Glucose 138 mg/dL (83-110); Potassium 4.0 mmol/L (3.5-5.1); Sodium 141 mmol/L (136-145); Vancomycin, Random 18.7 ug/mL (See Comment)
[2025-05-04 15:13] VITALS: BMI 18.6
[2025-05-04] MEDS: Vancomycin 1 GM Premix Bag IVPB SCH (17:18)
[2025-05-05 06:13] LABS: #Basophils 0.08 10x3/uL (0.0-0.2); #Eosinophils 0.16 10x3/uL (0.0-0.7); #Monocytes 0.88 10x3/uL (0.11-0.59); #Neutrophils 10.23 10x3/uL (1.40-6.50); %Basophils 0.6 % (0.0-1.0); %Eosinophils 1.2 % (0.0-10.0); %Lymphocytes 13.6 % (21.0-51.0); %Monocytes 6.7 % (0.0-10.0); %Neutrophils 77.4 % (42.0-75.0); Hematocrit 28.7 % (36.0-47.0); Hemoglobin 9.1 g/dL (12.0-16.0); Mean Corpuscular Hemoglobin 29.6 pg (27.0-31.0); Mean Corpuscular Volume 93.5 fL (78.0-98.0); Platelet Count 475 10x3/uL (130-400); Red Blood Cell (RBC) Count 3.07 mill/uL (4.20-5.40); White Blood Cell (WBC) Count 13.21 10x3/uL (4.8-10.8)
[2025-05-05 06:29] LABS: Anion Gap 14 mmol/L (10-20); BUN (Urea Nitrogen) 6 mg/dL (9.8-20.1); Calc. Creatinine Clearance 85 mL/min (70-130); Calcium 7.9 mg/dL (7.8-10.44); Carbon Dioxide 21 mmol/L (23-31); Chloride 110 mmol/L (98-107); Glucose 121 mg/dL (83-110); Potassium 3.5 mmol/L (3.5-5.1); Sodium 141 mmol/L (136-145)
[2025-05-06] MEDS: Metoprolol Tartrate 5 MG (5 mL) VIAL IVP SCH (14:30)
[2025-05-06 14:45] LABS: #Basophils 0.05 10x3/uL (0.0-0.2); #Eosinophils 0.06 10x3/uL (0.0-0.7); #Monocytes 0.68 10x3/uL (0.11-0.59); #Neutrophils 9.28 10x3/uL (1.40-6.50); %Basophils 0.4 % (0.0-1.0); %Eosinophils 0.5 % (0.0-10.0); %Lymphocytes 11.1 % (21.0-51.0); %Monocytes 6.0 % (0.0-10.0); %Neutrophils 81.5 % (42.0-75.0); Hematocrit 26.2 % (36.0-47.0); Hemoglobin 8.2 g/dL (12.0-16.0); Mean Corpuscular Hemoglobin 29.7 pg (27.0-31.0); Mean Corpuscular Volume 94.9 fL (78.0-98.0); Platelet Count 458 10x3/uL (130-400); Red Blood Cell (RBC) Count 2.76 mill/uL (4.20-5.40); White Blood Cell (WBC) Count 11.39 10x3/uL (4.8-10.8)
[2025-05-06 15:17] LABS: Anion Gap 10 mmol/L (10-20); BUN (Urea Nitrogen) 9 mg/dL (9.8-20.1); Calc. Creatinine Clearance 79 mL/min (70-130); Calcium 7.8 mg/dL (7.8-10.44); Carbon Dioxide 24 mmol/L (23-31); Chloride 108 mmol/L (98-107); Glucose 205 mg/dL (83-110); Potassium 3.6 mmol/L (3.5-5.1); Sodium 138 mmol/L (136-145)
[2025-05-07 16:27] VITALS: BP 103/56; TEMP 97.4
== END 2025-05-07 18:53 | disposition hospice, inpatient (51) | DRG 592 ==
LOC: ERS 17:55 → 2NO 21:07
PROVIDERS: ADMIT Student in an Organized Health Care Education/Training Program; ATTEND Internal Medicine
PROC: 30233J1 Transfusion of Nonautologous Serum Albumin into Peripheral Vein, Percutaneous Approach (ICD-10-PCS; principal; 2025-04-28)
PROC: 3E03329 Introduction of Other Anti-infective into Peripheral Vein, Percutaneous Approach (ICD-10-PCS; 2025-04-28)
DX: L89.154 Pressure ulcer of sacral region, stage 4 (principal); E43 Unspecified severe protein-calorie malnutrition; J93.9 Pneumothorax, unspecified; Z68.1 Body mass index [BMI] 19.9 or less, adult; I50.42 Chronic combined systolic (congestive) and diastolic (congestive) heart failure; E03.9 Hypothyroidism, unspecified; K21.9 Gastro-esophageal reflux disease without esophagitis; I11.0 Hypertensive heart disease with heart failure; E78.5 Hyperlipidemia, unspecified; K59.00 Constipation, unspecified; R54 Age-related physical debility; Z96.641 Presence of right artificial hip joint; E87.6 Hypokalemia; E83.42 Hypomagnesemia; I35.0 Nonrheumatic aortic (valve) stenosis; E88.09 Other disorders of plasma-protein metabolism, not elsewhere classified; E11.40 Type 2 diabetes mellitus with diabetic neuropathy, unspecified; M81.0 Age-related osteoporosis without current pathological fracture; M19.90 Unspecified osteoarthritis, unspecified site; F32.A Depression, unspecified; D72.829 Elevated white blood cell count, unspecified; R41.0 Disorientation, unspecified; Z98.890 Other specified postprocedural states; Z90.49 Acquired absence of other specified parts of digestive tract; Z87.81 Personal history of (healed) traumatic fracture; Z88.5 Allergy status to narcotic agent; Z98.84 Bariatric surgery status; Z79.82 Long term (current) use of aspirin; Z79.899 Other long term (current) drug therapy; Z79.890 Hormone replacement therapy
CPT/HCPCS: 36415; 36416; 71045; 71260; 74177; 80048; 80053; 80202; 81001; 83036; 83605; 83690; 83735; 83880; 84132; 84145; 84484; 85025; 87040; 87081; 87086; 93005; 96365; 96374; 96375; 97139; J1644; J1815; J2185; J2543; J3372; J3373; J3475; J3480; J7030; J7050; J7120; P9047; Q9967